=== PATIENT | female | born 1975 | race African-American/Black ===

== ENCOUNTER 2017-07-22 07:02 | Outpatient (CLI) | payer MEDICAID ==
[~2017-07-22] VITALS: Ht 170.2 cm; Wt 68.2 kg
[2017-07-22 07:18] VITALS: BP 119/83
[2017-07-22] MEDS ORDERED: PRENTAB9 PO (07:50)
[2017-07-22] MEDS ORDERED: TUMS500C PO (07:51)
--- NOTE | 2017-07-22 07:55 | IPNPDOC ---
Subjective Date Seen The patient was seen on 07/22/17. Subjective Chief Complaint/HPI The patient is a 42-year-old female admitted with a reason for visit of ?UTI. Events since last encounter Patient is here with urinary urgency and frequency for the past couple days. Denies urinary burning or hematuria. No fevers or chills. Recently moved to [place] from [place], does not have a provider in the area. Moved to the area because could not live in previous place of living. Noted that her day of last menstrual period in January or February. Was planning on having an at 20 week but did not go through with it. Did not receive care and would like to start now. Reports having 4 living children, and 4 either miscarriages or spontaneous abortions. Had delivered previously down in [facility]. Previous living children were born in 1997, 2002, 2006 and 2015 and live in [facility] with previous father. Current is from new partner. Admits to some mild lower abdominal pain, cramping. Has some heartburn symptoms and takes tums for relief. Used to take Norvasc for hypertension but stopped taking it 2 years ago due to lightheadedness. General: Denies: Chills, Night Sweats Constitutional: Denies: Chills Eyes: Denies: Vision change ENT: Denies: Head Aches Pulmonary: Denies: Dyspnea Cardiovascular: Denies: Chest Pain, Palpitations Gastrointestinal: Denies: Nausea, Vomiting, Constipation Other systems PMH: Hypertension GERD 4 living children Meds: None Surgeries: None Allergies: Latex Family: Mom: Thyroid problems Paternal Grandma: Diabetes Social: Moved to [facility] within last 2 weeks. Living with friend while looking for place to live. Father lives in [facility] and not in the picture. Objective Physical Examination General Exam: Positive: Alert, Cooperative, No Acute Distress Eye Exam: Positive: PERRLA ENT Exam: Positive: Atraumatic, Mucous membr. moist/pink Extremity Exam: Negative: Clubbing, Cyanosis, Edema Assessment /Plan Assessment A 42 year old female with dysuria, . Based on day of LMP, beginning of February, estimate gestational age 33-34 weeks. Patient is -2-4-4. All vaginal deliveries, no c-sections. Previous children live in [facility] with previous father. Patient recently moved to [place] from [place], [place] and living with friend. Ordering UA and urine culture for possible UTI. UA positive for +2 Leukocyte esterase, trace blood, trace protein. Patient has not had labs ordering, pending. Ordering gestational ultrasound. Routine care. Plan/VTE VTE Prophylaxis Ordered?: Yes (oob ad chuck) GME ATTESTATION GME ATTESTATION My faculty preceptor for this patient encounter was physically present during the encounter and was fully available. All aspects of the patient interview, examination, medical decision making process, and medical care plan development were reviewed and approved by the faculty preceptor. The faculty preceptor is aware and concurs with the plan as stated in the body of this note and will attest to such by his/her cosignature. JOSE MONTELONGO DO Jul 22, 2017 07:51
[2017-07-22 08:16] VITALS: BP 120/78
[2017-07-22] MEDS ORDERED: NITROFURANTOIN (MACROBID) 100 MG CAP PO SCH (09:00)
[2017-07-22] MEDS ORDERED: PRENATAL VITAMINS CHEWABLE TABLET PO SCH (09:00)
[2017-07-22 09:43] VITALS: BP 121/77
[2017-07-22 10:18] LABS: BASO % 0.2 % (0.0-1.0); EOS # 0.2 10^3/uL (0.0-0.50); EOS % 1.8 % (0.0-3.0); IMMATURE GRANULOCYTE % 0.6 % (0-0); LYMPH # 1.4 10^3/uL (1.5-4.5); LYMPH % 16.5 % (24.0-44.0); MEAN CORPUSCULAR VOLUME 90.8 fl (80.0-96.0); MONO # 0.7 10^3/uL (0.0-0.8); MONO % 8.9 % (0.0-5.0); NEUTROPHILS # 5.9 10^3/uL (1.8-7.7); PLATELET COUNT, AUTOMATED 206 10^3/uL (150-450); RED CELL DISTRIBUTION WIDTH 13.5 % (11.5-14.5); WHITE BLOOD COUNT 8.2 10^3/uL (4.0-10.0)
[2017-07-22 10:21] LABS: ADD MANUAL DIFFER NO; DIFF SLIDE NUMBER 114
--- NOTE | 2017-07-22 10:35 | REP ---
OB ULTRASOUND: Real-time sonographic evaluation of the gravid uterus performed. There is a single living intrauterine gestation, estimated gestational age 27 weeks 5 days, EDC 10/16/2017. BPD 71 mm 28 weeks 4 days HC 255 mm 27 weeks 5 days AC 229 mm 27 weeks 2 days FL 53 mm 28 weeks 1 day HC/AC ratio 1.11 within normal range. Estimated weight 1113 grams, 40th percentile. Cervix is closed and measures 3.2 cm in length. heart rate 153 beats per minute. Amniotic fluid within normal limits, ANURADHA 11.4 within normal range of 9.4 - 22.8. S/d ratio 2.86 within normal range. RI 0.65 within normal range. SEEN/GROSSLY UNREMARKABLE Lateral ventricles Yes Posterior fossa Yes Upper lip Yes Four-chamber heart Yes LVOT Yes RVOT Yes Stomach Yes Cord insertion Yes Three vessel cord Yes Kidneys Yes Bladder Yes Spine Yes position: Vertex. Placenta: Anterior and grade 1 with no previa or abruption. Amniotic fluid: Within normal limits. Signed by Sin Srivastava MD 07/22/2017 10:37 A
[2017-07-22 10:46] LABS: ALT/SGPT 15 U/L (12-78); AST/SGOT 15 U/L (7-37); BILIRUBIN,TOTAL 0.2 MG/DL (0.2-1.0); CREATININE FOR GFR 0.65 MG/DL (0.55-1.02); GLOMERULAR FILTRATION RATE > 60.0 (>58); URIC ACID 3.1 MG/DL (2.6-6.0)
[2017-07-22 10:54] VITALS: BP 136/75
[2017-07-22] MEDS ORDERED: MACR100C43 PO (10:57)
--- NOTE | 2017-07-22 11:02 | IPNPDOC ---
Obstetrical Progress Note Date of Service Jul 22, 2017 Objective Vital Signs Vital Signs Date Time Temp Pulse Resp B/P (MAP) Pulse Ox O2 Delivery O2 Flow Rate FiO2 07/22/17 09:43 98.5 103 18 121/77 (92) Assessment Heart Rate (FHR): 150 Variability: Moderate Accelerations: Positive Decelerations: None Heart Rate Tracing: Category I Tocometer Contractions: No Sterile Vaginal Examination Dilation: other (not performed) Assessment and Plan Age: 42 : 9 Term: 2 Pre-term: 2 Abortions: 4 Livin EGA at Admission: 27 (27w5d) Status: Reassuring Group B Streptococcus: Unknown Additional Comments panel, preeclamptic panel, US for dating/anatomy ordered. ASHLEIGH by piedad briggs 10/16/17. Urine C&S pending. Macrobid 100mg BID ordered Encouraged pt to seek PN care SWATHI. Warnings reviewed. Pt verbalized understanding. Codie Decker CNM Jul 22, 2017 11:02
[2017-07-23 10:34] LABS: HBsAg Prenatal NEGATIVE (NEGATIVE)
== END 2017-07-22 11:06 | disposition home or self-care (01) ==
LOC: M LDO 07:02
PROVIDERS: ATTEND Advanced Practice Midwife
DX: O99.89 Other specified diseases and conditions complicating pregnancy, childbirth and the puerperium (principal); Z3A.27 27 weeks gestation of pregnancy; O23.42 Unspecified infection of urinary tract in pregnancy, second trimester; O10.012 Pre-existing essential hypertension complicating pregnancy, second trimester; K21.9 Gastro-esophageal reflux disease without esophagitis; O09.32 Supervision of pregnancy with insufficient antenatal care, second trimester; O09.522 Supervision of elderly multigravida, second trimester; Z91.040 Latex allergy status; O99.612 Diseases of the digestive system complicating pregnancy, second trimester

== ENCOUNTER → 2017-08-03 | Outpatient (REF) | payer MEDICAID ==
[~2017-08-03] MED LIST: MACR100C43 PO; PRENTAB9 PO; TUMS500C PO
== END ==
LOC: M LAB REF 16:41
PROVIDERS: ATTEND Obstetrics & Gynecology
DX: Z34.83 Encounter for supervision of other normal pregnancy, third trimester (principal)

== ENCOUNTER → 2017-08-20 | Outpatient (CLI) | payer MEDICAID ==
[2017-08-20 09:32] LABS: GLUCOSE, FASTING 88 MG/DL (LESS THAN 95)
[2017-08-20 10:38] LABS: 1 HR GLUCOSE 145 MG/DL (LESS THAN 180)
[2017-08-20 11:48] LABS: 2 HR GLUCOSE 135 MG/DL (LESS THAN 155)
[2017-08-20 12:53] LABS: 3 HR GLUCOSE 105 MG/DL (LESS THAN 140)
== END ==
LOC: M LAB 08:30
DX: O99.810 Abnormal glucose complicating pregnancy (principal); Z3A.31 31 weeks gestation of pregnancy
CPT/HCPCS: 82951

== ENCOUNTER 2017-09-09 11:44 | Emergency (ER) | payer MEDICAID ==
[2017-09-09] MEDS: NS 1,000 ML IV (13:15)
[2017-09-09 13:26] LABS: BASO % 0.3 % (0.0-1.0); EOS # 0.2 10^3/uL (0.0-0.50); EOS % 2.6 % (0.0-3.0); HEMATOCRIT 37.5 % (36.0-47.0); HEMOGLOBIN 12.5 g/dl (12.0-16.0); IMMATURE GRANULOCYTE % 0.3 % (0-0); LYMPH # 1.6 10^3/uL (1.5-4.5); MEAN CORPUSCULAR HEMOGLOBIN 29.3 pg (27.0-33.0); MEAN CORPUSCULAR HGB CONC 33.3 g/dl (32.0-36.5); MONO # 0.5 10^3/uL (0.0-0.8); MONO % 7.4 % (0.0-5.0); NEUTROPHILS # 4.3 10^3/uL (1.8-7.7); NEUTROPHILS % 65.4 % (36.0-66.0); PLATELET COUNT, AUTOMATED 240 10^3/uL (150-450); RED BLOOD COUNT 4.26 10^6/uL (4.00-5.40); RED CELL DISTRIBUTION WIDTH 13.5 % (11.5-14.5); WHITE BLOOD COUNT 6.5 10^3/uL (4.0-10.0)
[2017-09-09 13:41] LABS: ANION GAP 8 MEQ/L (8-16); BLOOD UREA NITROGEN 8 MG/DL (7-18); CALCIUM LEVEL 8.7 MG/DL (8.5-10.1); CARBON DIOXIDE LEVEL 23 MEQ/L (21-32); CHLORIDE LEVEL 107 MEQ/L (98-107); CPK CREATINE PHOSPHOKINASE 70 U/L (26-192); CREATININE FOR GFR 0.91 MG/DL (0.55-1.30); GLOMERULAR FILTRATION RATE > 60.0 (>58); GLUCOSE, FASTING 120 MG/DL (70-100); MAGNESIUM LEVEL 1.6 MG/DL (1.8-2.4); POTASSIUM SERUM 3.4 MEQ/L (3.5-5.1); SODIUM LEVEL 138 MEQ/L (136-145); TROPONIN I < 0.02 NG/ML (< 0.10)
[2017-09-09 13:47] LABS: INR 0.93; MB/CK RELATIVE INDEX 1.42 (< OR =4); PROTHROMBIN TIME 12.5 SECONDS (12.4-14.5)
== END 2017-09-09 14:57 | disposition home or self-care (01) ==
LOC: M ED 11:44
DX: O99.89 Other specified diseases and conditions complicating pregnancy, childbirth and the puerperium (principal); R42 Dizziness and giddiness; Z3A.35 35 weeks gestation of pregnancy
CPT/HCPCS: 93005

== ENCOUNTER → 2017-09-22 | Outpatient (REF) | payer MEDICAID | LOC: M LAB REF 16:31 | DX: Z3A.36 36 weeks gestation of pregnancy (principal) ==

== ENCOUNTER 2017-09-28 17:05 | Inpatient (IN) | payer MEDICAID ==
[2017-09-28] MEDS: LABETALOL HCL 100 MG/20 ML VIAL IV ×2 (18:55→19:58)
[2017-09-28 19:44] LABS: HEMATOCRIT 35.8 % (36.0-47.0); HEMOGLOBIN 12.1 g/dl (12.0-16.0); MEAN CORPUSCULAR HGB CONC 33.8 g/dl (32.0-36.5); MEAN CORPUSCULAR VOLUME 88.8 fl (80.0-96.0); PLATELET COUNT, AUTOMATED 181 10^3/uL (150-450); RED BLOOD COUNT 4.03 10^6/uL (4.00-5.40); RED CELL DISTRIBUTION WIDTH 13.5 % (11.5-14.5); WHITE BLOOD COUNT 8.3 10^3/uL (4.0-10.0)
[2017-09-28] MEDS ORDERED: OXYTOCIN 30 UNITS IN 0.9% NaCl 500ML IV BAG (J2590) As Ordered (19:52)
[2017-09-28 20:06] LABS: ALT/SGPT 14 U/L (12-78); AST/SGOT 19 U/L (7-37); BILIRUBIN,TOTAL 0.2 MG/DL (0.2-1.0); CREATININE FOR GFR 0.75 MG/DL (0.55-1.30); GLOMERULAR FILTRATION RATE > 60.0 (>58); LDH LACTATE DEHYDROGENASE 189 U/L (84-246); URIC ACID 4.3 MG/DL (2.6-6.0)
[2017-09-28] MEDS ORDERED: FENTANYL 2MCG/ML ROPIVACAINE 0.2% IN 0.9% NACL 200ML IVBAG As Ordered (20:13)
[2017-09-28 20:30] LABS: AMPHETAMINES URINE REFLEX NEGATIVE (NEGATIVE); BARBITURATES URINE REFLEX NEGATIVE (NEGATIVE); BENZODIAZEPINES URINE REFLEX NEGATIVE (NEGATIVE); CANNABINOIDS URINE REFLEX NEGATIVE (NEGATIVE); COCAINE METABOLITE URINE REFLE NEGATIVE (NEGATIVE); CREATININE,RANDOM URINE 60.1 MG/DL; METHADONE URINE REFLEX NEGATIVE (NEGATIVE); OPIATES URINE REFLEX NEGATIVE (NEGATIVE); PHENCYCLIDINE URINE REFLEX NEGATIVE (NEGATIVE); TOTAL PROTEIN,RANDOM URINE 13.3 MG/DL (0.0-12.0)
[2017-09-28] MEDS: OXYTOCIN DRIP 30 UNITS in APPROPRIATE DILUENT 1 EA IV (23:32)
[2017-09-28] MEDS ORDERED: MEASLES,MUMPS,RUBELLA VACCINE INJ (MMR-II) (90707) SC (23:45)
[2017-09-28] MEDS ORDERED: DOCUSATE SODIUM 100 MG CAP PO (23:45)
[2017-09-28] MEDS ORDERED: DIBUCAINE 1% OINTMENT 30GM TOP (23:45)
[2017-09-28] MEDS ORDERED: RHOGAM 300 MCG (1500 IU) INJ (J2790) IM (23:45)
[2017-09-28] MEDS ORDERED: METHYLERGONOVINE MALEATE 0.2 MG TAB PO (23:45)
[2017-09-28] MEDS ORDERED: ACETAMINOPHEN 500 MG TAB PO (23:45)
[2017-09-28] MEDS: LABETALOL 200 MG TAB PO (23:58)
[2017-09-28] MEDS: IBUPROFEN 800 MG TAB PO (23:58)
[2017-09-29 06:47] LABS: HEMATOCRIT 31.7 % (36.0-47.0); HEMOGLOBIN 10.8 g/dl (12.0-16.0); MEAN CORPUSCULAR HEMOGLOBIN 29.8 pg (27.0-33.0); MEAN CORPUSCULAR HGB CONC 34.1 g/dl (32.0-36.5); MEAN CORPUSCULAR VOLUME 87.3 fl (80.0-96.0); PLATELET COUNT, AUTOMATED 154 10^3/uL (150-450); RED BLOOD COUNT 3.63 10^6/uL (4.00-5.40); RED CELL DISTRIBUTION WIDTH 13.4 % (11.5-14.5); WHITE BLOOD COUNT 11.3 10^3/uL (4.0-10.0)
[2017-09-29 07:06] LABS: ALT/SGPT 12 U/L (12-78); AST/SGOT 24 U/L (7-37); BILIRUBIN,TOTAL 0.2 MG/DL (0.2-1.0); GLOMERULAR FILTRATION RATE > 60.0 (>58); LDH LACTATE DEHYDROGENASE 204 U/L (84-246); URIC ACID 4.3 MG/DL (2.6-6.0)
[2017-09-29] MEDS: LABETALOL 200 MG TAB PO ×3 (08:59→21:44)
[2017-09-29] MEDS: PRENATAL VITAMINS CHEWABLE TABLET PO ×2 (08:59→09:29)
[2017-09-29] MEDS: IBUPROFEN 800 MG TAB PO ×2 (09:29→20:01)
[2017-09-30] MEDS: IBUPROFEN 800 MG TAB PO (08:48)
[2017-09-30] MEDS: PRENATAL VITAMINS CHEWABLE TABLET PO (08:48)
[2017-09-30] MEDS: LABETALOL 200 MG TAB PO (08:49)
== END 2017-09-30 18:10 | disposition home or self-care (01) | DRG 560 ==
LOC: M LDO 17:05 → M OBS 09-29 02:31 → M LDI 18:11 → M OBS 09-29 14:32
PROC: 10E0XZZ Delivery of Products of Conception, External Approach (ICD-10-PCS; principal; 2017-09-28)
DX: O10.02 Pre-existing essential hypertension complicating childbirth (principal); Z37.0 Single live birth; Z3A.37 37 weeks gestation of pregnancy

== ENCOUNTER 2017-11-11 14:24 | Observation (INO) | payer OTHER, MEDICAID ==
[2017-11-11] MEDS ORDERED: LABETALOL HCL 100 MG/20 ML VIAL IV (16:00)
[2017-11-11] MEDS: LABETALOL 200 MG TAB PO (16:36)
[2017-11-11 16:43] LABS: BASO % 0.4 % (0.0-1.0); EOS # 0.2 10^3/uL (0.0-0.50); EOS % 2.5 % (0.0-3.0); HEMATOCRIT 40.9 % (36.0-47.0); HEMOGLOBIN 13.6 g/dl (12.0-15.5); IMMATURE GRANULOCYTE % 0.1 % (0-3.0); LYMPH # 2.8 10^3/uL (1.5-4.5); LYMPH % 39.5 % (24.0-44.0); MEAN CORPUSCULAR HEMOGLOBIN 29.4 pg (27.0-33.0); MEAN CORPUSCULAR HGB CONC 33.3 g/dl (32.0-36.5); MEAN CORPUSCULAR VOLUME 88.5 fl (80.0-96.0); MONO # 0.5 10^3/uL (0.0-0.8); MONO % 6.9 % (0.0-5.0); NEUTROPHILS # 3.6 10^3/uL (1.8-7.7); NEUTROPHILS % 50.6 % (36.0-66.0); PLATELET COUNT, AUTOMATED 216 10^3/uL (150-450); RED BLOOD COUNT 4.62 10^6/uL (4.00-5.40); WHITE BLOOD COUNT 7.1 10^3/uL (4.0-10.0)
[2017-11-11 16:53] LABS: INR 0.91; PROTHROMBIN TIME 12.3 SECONDS (12.4-14.5)
[2017-11-11 16:54] LABS: PARTIAL THROMBOPLASTIN TIME 27.1 SECONDS (26.8-37.9)
[2017-11-11 17:15] LABS: ALBUMIN 3.4 GM/DL (3.2-5.2); ALBUMIN/GLOBULIN RATIO 0.81 (1.00-1.93); ALT/SGPT 48 U/L (12-78); ANION GAP 5 MEQ/L (8-16); AST/SGOT 30 U/L (7-37); BILIRUBIN,DIRECT < 0.1 MG/DL (0.0-0.2); BILIRUBIN,TOTAL 0.2 MG/DL (0.2-1.0); BLOOD UREA NITROGEN 14 MG/DL (7-18); CALCIUM LEVEL 8.4 MG/DL (8.5-10.1); CARBON DIOXIDE LEVEL 28 MEQ/L (21-32); CHLORIDE LEVEL 107 MEQ/L (98-107); CREATININE FOR GFR 0.91 MG/DL (0.55-1.30); GLOMERULAR FILTRATION RATE > 60.0 (>58); GLUCOSE, FASTING 82 MG/DL (70-100); LIPASE 154 U/L (73-393); MAGNESIUM LEVEL 2.1 MG/DL (1.8-2.4); POTASSIUM SERUM 3.7 MEQ/L (3.5-5.1); SODIUM LEVEL 140 MEQ/L (136-145); TOTAL PROTEIN 7.6 GM/DL (6.4-8.2); TROPONIN I < 0.02 NG/ML (< 0.10); URIC ACID 4.7 MG/DL (2.6-6.0)
[2017-11-11 17:21] LABS: ALKALINE PHOSPHATASE 85 U/L (45-117); CK-MB VALUE MASS < 1.0 NG/ML (<3.6); CPK CREATINE PHOSPHOKINASE 94 U/L (26-192); MB/CK RELATIVE INDEX 1.06 (< OR =4)
[2017-11-11 17:27] LABS: CONTROL LINE HCG INT CTR LINE PRESENT; HCG, SERUM QUALITATIVE NEGATIVE (NEGATIVE)
[2017-11-11 18:25] LABS: KETONE, URINE AUTO RFX NEGATIVE (NEGATIVE); LEUKOCYTE ESTERASE UR AUTO RFX NEGATIVE (NEGATIVE); MUCUS, URINE RFX SMALL (NEGATIVE); NITRITE, URINE AUTO RFX NEGATIVE (NEGATIVE); RBC, URINE AUTO RFX 0 /HPF (0-3); SPECIFIC GRAVITY UR AUTO RFX 1.012 (1.002-1.035); SQUAM EPITHELIAL CELL UR AURFX 1 /HPF (0-6); WBC, URINE AUTO RFX 1 /HPF (0-3)
[2017-11-11] MEDS: hydrALAZINE INJ 20 MG/ML VIAL IV (19:51)
[2017-11-11] MEDS ORDERED: ONDANSETRON 4 MG TAB (S0181) PO (20:45)
[2017-11-11] MEDS: hydroCHLOROthiazide 12.5 MG CAPSULE PO (21:13)
[2017-11-11] MEDS: amLODIPine 10 MG TAB PO (21:13)
[2017-11-12] MEDS: ACETAMINOPHEN TAB 650MG DOSE (2X325MG) PO (06:27)
[2017-11-12] MEDS ORDERED: amLODIPine 10 MG TAB PO (09:00)
[2017-11-12] MEDS: amLODIPine 10 MG TAB PO (10:01)
[2017-11-12] MEDS: ENOXAPARIN 40 MG/0.4 ML SYRINGE (J1650) SC (10:01)
[2017-11-12] MEDS: hydroCHLOROthiazide 12.5 MG CAPSULE PO (10:01)
== END 2017-11-12 13:00 | disposition home or self-care (01) ==
LOC: M ED 14:24 → M PED 23:35
DX: I16.0 Hypertensive urgency (principal); J45.909 Unspecified asthma, uncomplicated; I10 Essential (primary) hypertension; Z91.040 Latex allergy status; Z79.899 Other long term (current) drug therapy
CPT/HCPCS: J1650

== ENCOUNTER → 2018-01-31 | Outpatient (CLI) | payer MEDICAID | LOC: M OUTALCOH 07:57 | DX: F14.20 Cocaine dependence, uncomplicated (principal) ==

== ENCOUNTER 2018-02-17 10:26 | Outpatient (RCR) | payer MEDICAID | END 2018-03-08 | LOC: M OUTALCOH 02-23 14:23 | DX: F14.20 Cocaine dependence, uncomplicated (principal) ==

== ENCOUNTER → 2018-02-25 | Outpatient (CLI) | payer OTHER | LOC: M LAB 17:41 | DX: F14.20 Cocaine dependence, uncomplicated (principal) | CPT/HCPCS: 36415 ==

== ENCOUNTER → 2018-05-06 | Outpatient (CLI) | payer MEDICAID | LOC: M OUTALCOH 12:59 | DX: F14.20 Cocaine dependence, uncomplicated (principal) ==

== ENCOUNTER 2018-05-17 15:00 | Outpatient (RCR) | payer MEDICAID | END 2018-06-08 | LOC: M OUTALCOH 05-19 14:00 | DX: F14.20 Cocaine dependence, uncomplicated (principal) ==

== ENCOUNTER 2018-08-10 09:44 | Emergency (ER) | payer MEDICAID, OTHER ==
[~2018-08-10] VITALS: Ht 170.2 cm; Wt 70.5 kg
[~2018-08-10 09:44] MED LIST changes: +AMLO10TA5 PO; +CYCL10TA PO; +HYDR12CA PO; +LABE5INJ PO; +MOTR200T44 PO; +NORCOTAB PO; +TYLE500T78 PO; +VITMTA PO
[2018-08-10 09:57] VITALS: BP 166/106
--- NOTE | 2018-08-10 10:41 | REP ---
Unilateral right ribs PA chest five views History: Fall The lungs are clear. The heart is normal in size. The pulmonary vasculature is normal in appearance. There is a fracture of the the right ninth rib. Impression: Right ninth rib fracture. Electronically Signed by Fabio Xiao MD 08/10/2018 10:33 A
[2018-08-10] MEDS ORDERED: NORCO, ANEXSIA 5/325MG TABLET (HYDROcodone/ACETAMINOPHEN) PO ONE (10:45)
[2018-08-10] MEDS ORDERED: NORCOTAB PO ×2 (10:47→10:48)
== END 2018-08-10 11:10 | disposition home or self-care (01) ==
LOC: M ED 09:44
DX: S22.31XA Fracture of one rib, right side, initial encounter for closed fracture (principal); W11.XXXA Fall on and from ladder, initial encounter; Y92.098 Other place in other non-institutional residence as the place of occurrence of the external cause; I10 Essential (primary) hypertension; J45.909 Unspecified asthma, uncomplicated; R51 Headache; K21.9 Gastro-esophageal reflux disease without esophagitis; F41.9 Anxiety disorder, unspecified; F32.9 Major depressive disorder, single episode, unspecified; Z91.040 Latex allergy status; Z79.899 Other long term (current) drug therapy

== ENCOUNTER → 2018-08-30 | Outpatient (REF) | payer OTHER ==
[2018-08-30 16:57] LABS: BASO % 0.7 % (0.0-1.0); EOS # 0.1 10^3/uL (0.0-0.50); EOS % 2.2 % (0.0-3.0); HEMATOCRIT 43.5 % (36.0-47.0); LYMPH # 1.4 10^3/uL (1.5-4.5); LYMPH % 31.8 % (24.0-44.0); MEAN CORPUSCULAR HEMOGLOBIN 29.4 pg (27.0-33.0); MEAN CORPUSCULAR HGB CONC 32.2 g/dl (32.0-36.5); MEAN CORPUSCULAR VOLUME 91.2 fl (80.0-96.0); MONO # 0.4 10^3/uL (0.0-0.8); MONO % 8.7 % (0.0-5.0); NEUTROPHILS # 2.6 10^3/uL (1.8-7.7); NEUTROPHILS % 56.6 % (36.0-66.0); PLATELET COUNT, AUTOMATED 218 10^3/uL (150-450); RED BLOOD COUNT 4.77 10^6/uL (4.00-5.40); WHITE BLOOD COUNT 4.5 10^3/uL (4.0-10.0)
[2018-08-30 17:13] LABS: ALBUMIN 3.7 GM/DL (3.2-5.2); ALT/SGPT 24 U/L (12-78); BILIRUBIN,TOTAL 0.2 MG/DL (0.2-1.0); BLOOD UREA NITROGEN 13 MG/DL (7-18); CALCIUM LEVEL 9.2 MG/DL (8.5-10.1); CARBON DIOXIDE LEVEL 30 MEQ/L (21-32); CHLORIDE LEVEL 104 MEQ/L (98-107); CHOLESTEROL LEVEL 215 MG/DL (<200); CHOLESTEROL RISK RATIO 4.215 (<5); CREATININE FOR GFR 0.93 MG/DL (0.55-1.30); GLOMERULAR FILTRATION RATE > 60.0 (>58); GLUCOSE, FASTING 89 MG/DL (70-100); HDL CHOLESTEROL 51 MG/DL (>40); LDL CHOLESTEROL 140 MG/DL (<100); NON-HDL-C 164 MG/DL; POTASSIUM SERUM 4.2 MEQ/L (3.5-5.1); SODIUM LEVEL 140 MEQ/L (136-145); THYROID STIMULATING HORMONE 0.305 uIU/ML (0.358-3.740); TOTAL PROTEIN 7.4 GM/DL (6.4-8.2); TRIGLYCERIDES LEVEL 122 MG/DL (<150)
[2018-08-30 17:30] LABS: HEMOGLOBIN A1c 6.1 %
== END ==
LOC: M LAB REF 16:23
PROVIDERS: ATTEND Nurse Practitioner Family
DX: Z13.9 Encounter for screening, unspecified (principal); I10 Essential (primary) hypertension

== ENCOUNTER → 2018-09-12 | Outpatient (CLI) | payer OTHER ==
--- NOTE | 2018-09-13 02:32 | REP ---
Clinical: Annual health screening requirement . Comparison: None . Technique: PA and lateral. Findings: The mediastinum and cardiac silhouette are normal. The lung toribio are clear and without acute consolidation, effusion, or pneumothorax. The skeletal structures are intact and normal. Impression: 1. No acute cardiopulmonary process. Electronically Signed by Grabiel Burgess MD 09/13/2018 02:23 A
== END ==
LOC: M RAD 14:48
PROVIDERS: ATTEND Nurse Practitioner Adult Health
DX: Z13.9 Encounter for screening, unspecified (principal)

== ENCOUNTER 2018-11-13 18:42 | Emergency (ER) | payer OTHER, SELFPAY ==
[~2018-11-13] VITALS: Ht 170.2 cm; Wt 65.9 kg
[~2018-11-13 18:42] MED LIST changes: +HYDR-3715 PO; -NORCOTAB PO
[2018-11-13] MEDS ORDERED: TRAZ10TA PO (18:51)
[2018-11-13] MEDS ORDERED: PERCOCET 5MG/325MG TAB PO ONE (20:00)
--- NOTE | 2018-11-13 20:20 | REPVR ---
EXAM: CT Head Without Contrast EXAM DATE/TIME: 11/13/2018 7:33 PM CLINICAL HISTORY: 43 years old, female; Injury or trauma; Fall; Additional info: Head injury with brief loc TECHNIQUE: Imaging protocol: Axial computed tomography images of the head/brain without contrast. Radiation optimization: All CT scans at this facility use at least one of these dose optimization techniques: automated exposure control; mA and/or kV adjustment per patient size (includes targeted exams where dose is matched to clinical indication); or iterative reconstruction. COMPARISON: No relevant prior studies available. FINDINGS: Brain: Normal. No hemorrhage. No significant white matter disease. No edema. Ventricles: Normal. No ventriculomegaly. Bones/joints: Unremarkable. No acute fracture. Sinuses: Visualized sinuses are unremarkable. No acute sinusitis. Mastoid air cells: Visualized mastoid air cells are unremarkable. No mastoid effusion. Soft tissues: Unremarkable. IMPRESSION: Negative noncontrast head CT. Electronically signed by: Fermin Boudreaux On 11/13/2018 20:20:23 PM
[2018-11-13] MEDS ORDERED: HYDR-3715 PO (20:48)
[2018-11-13 21:00] VITALS: BP 112/59
[2018-11-13] MEDS ORDERED: NORCO 5/325MG TABLET (BULK FOR ED) PO ONE (21:00)
--- NOTE | 2018-11-14 02:17 | REP ---
Clinical: Right knee pain. Technique: AP and lateral views of the right knee. Findings: Osseous structures, joint spaces, and surrounding soft tissues are relatively normal for age. No acute fracture dislocation. No effusion. No obvious swelling. Impression: Age-appropriate examination. Electronically Signed by Grabiel Burgess MD 11/14/2018 02:09 A
--- NOTE | 2018-11-14 02:18 | REP ---
Clinical: Right ankle pain with recent trauma/injury. Technique: AP, lateral, bilateral oblique views of the right ankle. Findings: There is an oblique fracture of the distal fibular metadiaphysis with overlying soft tissue swelling. Remainder examination appears normal. Impression: Oblique fracture of the distal fibular metadiaphysis. Electronically Signed by Grabiel Burgess MD 11/14/2018 02:10 A
--- NOTE | 2018-11-14 05:35 | ECGEPIP ---
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
== END 2018-11-13 21:14 | disposition home or self-care (01) ==
LOC: M ED 18:42
DX: S82.831A Other fracture of upper and lower end of right fibula, initial encounter for closed fracture (principal); W10.8XXA Fall (on) (from) other stairs and steps, initial encounter; Y92.89 Other specified places as the place of occurrence of the external cause; R55 Syncope and collapse; I10 Essential (primary) hypertension; K21.9 Gastro-esophageal reflux disease without esophagitis; Z91.040 Latex allergy status

== ENCOUNTER 2018-11-23 11:55 | Day surgery (SDC) | payer OTHER ==
[~2018-11-23] VITALS: Ht 170.2 cm; Wt 65.8 kg
[~2018-11-23 11:55] MED LIST changes: +LIDOCAINE 1% MDV 20ML VIAL SQ PRN; +LR 1,000 ML IV ONE; +TRAZ10TA PO
[2018-11-23] MEDS ORDERED: ROPIvacaine 0.5% 30 ML INJECTION (J2795 PER 1MG) ONE ×2 (11:56)
[2018-11-23] MEDS ORDERED: dexameTHASONE 10 MG/1 ML VIAL PRES.FREE (J1100) ONE ×2 (11:56)
[2018-11-23] MEDS ORDERED: LIDOCAINE 1% MDV 20ML VIAL ONE ×2 (11:56)
[2018-11-23] MEDS ORDERED: ONDANSETRON 4MG/2ML VIAL (J2405) As Ordered ONE (12:25)
[2018-11-23] MEDS ORDERED: ROCURONIUM BROMIDE 50 MG/5 ML VIAL As Ordered ONE (12:26)
[2018-11-23] MEDS ORDERED: dexameTHASONE 4 MG/ML 1ML VIAL (J1100) As Ordered ONE (12:26)
[2018-11-23] MEDS ORDERED: PROPOFOL 200 MG/20 ML VIAL As Ordered ONE (12:26)
[2018-11-23] MEDS ORDERED: LIDOCAINE 2% INJ 100 MG/5 ML SDV (FOR ANES.) As Ordered ONE (12:26)
[2018-11-23] MEDS ORDERED: MIDAZOLAM INJ 2 MG/2 ML VIAL (J2250) As Ordered ONE ×2 (12:26→13:17)
[2018-11-23] MEDS ORDERED: fentaNYL 100 MCG/2 ML INJECTION (J3010) As Ordered ONE ×2 (12:27→13:17)
[2018-11-23 12:41] LABS: URINE PREG TEST NEGATIVE (NEGATIVE)
[2018-11-23 13:46] LABS: BLOOD UREA NITROGEN 15 MG/DL (7-18); CALCIUM LEVEL 8.7 MG/DL (8.5-10.1); CARBON DIOXIDE LEVEL 28 MEQ/L (21-32); CHLORIDE LEVEL 106 MEQ/L (98-107); CREATININE FOR GFR 0.99 MG/DL (0.55-1.30); GLOMERULAR FILTRATION RATE > 60.0 (>58); GLUCOSE, FASTING 92 MG/DL (70-100); POTASSIUM SERUM 4.5 MEQ/L (3.5-5.1); SODIUM LEVEL 140 MEQ/L (136-145)
[2018-11-23] MEDS ORDERED: MIDAZOLAM INJ 2 MG/2 ML VIAL (J2250) IV ONE (14:00)
[2018-11-23] MEDS ORDERED: fentaNYL 100 MCG/2 ML INJECTION (J3010) IV ONE (14:00)
[2018-11-23] MEDS ORDERED: SUGAMMADEX SODIUM 500 MG/5 ML VIAL (BRIDION) As Ordered ONE (14:37)
[2018-11-23] MEDS ORDERED: METOPROLOL 5 MG/5 ML VIAL As Ordered ONE (14:37)
[2018-11-23] MEDS ORDERED: ESMOLOL INJ 100MG/10ML VIAL As Ordered ONE (14:37)
--- NOTE | 2018-11-23 15:31 | REP ---
Right ankle intraoperative fluoroscopic views during internal fixation: A series of eight films is performed during internal fixation of the distal fibula. The final films demonstrate the hardware and fracture are maintained in satisfactory position alignment. The mortise is symmetric. Fluoroscopic exposure time is 53 seconds. Fluoroscopic images are performed with last image hold technology and require no additional radiation. Electronically Signed by Sin Randolph MD 11/23/2018 03:22 P
[2018-11-23] MEDS ORDERED: fentaNYL 100 MCG/2 ML INJECTION (J3010) IV PRN (16:00)
[2018-11-23] MEDS ORDERED: ONDANSETRON 4MG/2ML VIAL (J2405) IV PRN (16:00)
[2018-11-23] MEDS ORDERED: PERCOCET 5MG/325MG TAB PO PRN (16:00)
[2018-11-23] MEDS ORDERED: LR 1,000 ML IV SCH ×2 (16:00→16:15)
[2018-11-23] MEDS ORDERED: HYDROMORPHONE HCL 0.5 MG/ 0.5 ML SYRINGE (J1170 PER 1) IV PRN (16:00)
[2018-11-23] MEDS ORDERED: NORCO, ANEXSIA 5/325MG TABLET (HYDROcodone/ACETAMINOPHEN) PO PRN ×2 (16:15)
--- NOTE | 2018-11-23 16:39 | REP ---
RIGHT ANKLE, THREE VIEWS: HISTORY: Fracture. COMPARISON: 11/23/2018 A plaster cast is present obscuring detail. The patient is status post ORIF of a fracture of the distal fibula. Metal hardware is present. The joint space is normal in appearance. IMPRESSION: The patient is status post ORIF of a fracture of the distal fibula. There is anatomic alignment. Electronically Signed by Fabio Xiao MD 11/23/2018 04:40 P
[2018-11-23 17:00] VITALS: BP 129/88
--- NOTE | 2018-11-23 19:03 | RO ---
DATE OF PROCEDURE: 11/23/2018 PREPROCEDURE DIAGNOSIS: Right ligamentous SER IV ankle fracture. POSTPROCEDURE DIAGNOSIS: Right ligamentous SER IV ankle fracture. OPERATIVE PROCEDURE: Open reduction internal fixation right fibula. SURGEON: Kendra Mckeon MD MASONRY INSPECTOR: None. ANESTHESIA: General endotracheal and popliteal nerve block. ESTIMATED BLOOD LOSS: 10 mL TOURNIQUET TIME: 66 minutes. COMPLICATIONS: None. CONDITION: Stable to recovery. IMPLANTS: Synthes 1/3 tubular six-hole plate and associated screws. INDICATION: Zoya Mckinney is a 43-year-old female who sustained a mechanical fall 10 days ago. Stress views performed in the office revealed a medial clear space widening. Patient elected for surgical management for her fracture. Risks and benefits of the surgery were discussed and included, but are not limited to infection, damage to nerves and blood vessels, continued pain and stiffness, need for additional procedure, malunion or nonunion, continued pain and stiffness. Informed consent was obtained in the office. DESCRIPTION OF PROCEDURE: The patient was met in the preoperative holding area where the right lower extremity was marked as the correct operative site. She underwent a popliteal nerve block by the anesthesia team. She was then taken to the operating room where she was placed in the supine position on the operating room table. Bony prominences were all padded. She underwent general anesthesia without difficulty. A well-padded tourniquet was placed on the right upper thigh. Chlorhexidine scrub was performed of the right lower extremity. Right lower extremity was prepped and draped in the normal sterile fashion. An official time out was held with the correct patient, operative site and operative procedure were verified. Following this, the right lower extremity was exsanguinated and tourniquet was inflated to 250 mmHg. It was up for 66 minutes. An incision was made over the posterolateral aspect of the fibula. Careful dissection to the level of the fracture was performed. The fracture was identified and cleaned of hematoma and debris. It was reduced using a point of reduction clamp. Reduction was confirmed on AP, lateral and mortise C-Arm views. Following this, a 0.0622 K-wire was placed across the fracture site. A lag screw was then placed and had good compression. A six hole 1/3 tubular plate was selected. It was placed over the posterolateral aspect of the fibula and secured proximally with 3.5 mm screws and distally with 4.0 cancellous screws. Hardware placement and reduction were again confirmed on AP, lateral and mortise views with the C-Arm. An external rotation stress test was performed. This was found to be negative and thus no syndesmotic screw was placed. Following this, wound was copiously irrigated. Deep layer was closed using #2-0 Vicryl, superficial layer was closed using #3-0 Vicryl and skin was closed with running #3-0 nylon stitch. A sterile dressing was applied followed by well padded cast. The patient was extubated and transferred to the recovery room in stable condition. PLAN: The patient will be nonweightbearing in the right lower extremity for 6 weeks. She will be on aspirin for DVT prophylaxis which she should start tomorrow. We will see her back in 2 weeks for a wound check and suture removal.
== END 2018-11-23 17:50 | disposition home or self-care (01) ==
LOC: M SDC 11:55
PROVIDERS: ATTEND Orthopaedic Surgery
DX: S82.61XA Displaced fracture of lateral malleolus of right fibula, initial encounter for closed fracture (principal); W19.XXXA Unspecified fall, initial encounter; Y93.9 Activity, unspecified; Y92.9 Unspecified place or not applicable; Y99.9 Unspecified external cause status; I10 Essential (primary) hypertension; F41.9 Anxiety disorder, unspecified; F32.9 Major depressive disorder, single episode, unspecified; Z91.040 Latex allergy status; Z79.899 Other long term (current) drug therapy
CPT/HCPCS: 27792; 36415; 73610; 80048; 84703; C1713; J0690; J1100; J2250; J2405; J2795; J3010

== ENCOUNTER 2018-12-22 11:15 | Emergency (ER) | payer OTHER ==
[~2018-12-22] VITALS: Ht 170.2 cm; Wt 69.8 kg
[~2018-12-22 11:15] MED LIST changes: -LIDOCAINE 1% MDV 20ML VIAL SQ PRN; -LR 1,000 ML IV ONE
[2018-12-22] MEDS ORDERED: ARIP1TAB4 (11:33)
[2018-12-22] MEDS ORDERED: TRAM50TA2 (11:33)
[2018-12-22] MEDS ORDERED: CITA20TA7 (11:33)
[2018-12-22] MEDS ORDERED: TRAZ-163 (11:33)
[2018-12-22 11:51] LABS: URINE PREG TEST NEGATIVE (NEGATIVE)
[2018-12-22 11:59] LABS: APPEARANCE, URINE HAZY (CLEAR); BACTERIA, URINE AUTO NEGATIVE (NEGATIVE); BILIRUBIN, URINE AUTO NEGATIVE (NEGATIVE); BLOOD, URINE BLOOD NEGATIVE (NEGATIVE); COLOR, URINE YELLOW (YELLOW); GLUCOSE, URINE (UA) AUTO NEGATIVE (NEGATIVE); KETONE, URINE AUTO NEGATIVE (NEGATIVE); LEUKOCYTE ESTERASE, URINE AUTO NEGATIVE (NEGATIVE); MUCUS, URINE SMALL (NEGATIVE); NITRITE, URINE AUTO NEGATIVE (NEGATIVE); PROTEIN, URINE AUTO NEGATIVE (NEGATIVE); RBC, URINE AUTO 1 /HPF (0-3); SPECIFIC GRAVITY URINE AUTO 1.028 (1.002-1.035); SQUAMOUS EPITHELIAL CELL UR AU 2 /HPF (0-6); UROBILINOGEN, URINE AUTO 0.2 mg/dL (0.0-2.0); WBC, URINE AUTO 1 /HPF (0-3)
[2018-12-22 12:42] VITALS: BP 136/79
[2018-12-22] MEDS ORDERED: LIDOCAINE 1% SDV 5 ML VIAL DILUENT ONE (12:45)
[2018-12-22] MEDS ORDERED: AZITHROMYCIN 250 MG TAB PO ONE (12:45)
[2018-12-22] MEDS ORDERED: cefTRIAXone SOD 250 MG VIAL (J0696) IM ONE (12:45)
[2018-12-22] MEDS ORDERED: FLAG500T PO (12:55)
[2018-12-22] MEDS ORDERED: FLUC10TA PO (12:55)
[2018-12-22 13:40] LABS: CHLAMYDIA DNA AMPLIFICATION NEGATIVE (NEGATIVE); GC DNA AMPLIFICATION NEGATIVE (NEGATIVE)
[2018-12-22 13:51] LABS: CHLAMYDIA DNA AMPLIFICATION NEGATIVE (NEGATIVE); GC DNA AMPLIFICATION NEGATIVE (NEGATIVE)
== END 2018-12-22 13:16 | disposition home or self-care (01) ==
LOC: M ED 11:15
DX: B37.3 Candidiasis of vulva and vagina (principal); N76.0 Acute vaginitis; Z20.2 Contact with and (suspected) exposure to infections with a predominantly sexual mode of transmission; I10 Essential (primary) hypertension; J45.909 Unspecified asthma, uncomplicated; K21.9 Gastro-esophageal reflux disease without esophagitis; Z79.899 Other long term (current) drug therapy; Z91.040 Latex allergy status
CPT/HCPCS: 81001; 84703; 87210; 87491; 87591; 96372; 99284; J0696

== ENCOUNTER → 2019-01-20 | Outpatient (CLI) | payer MEDICAID ==
[~2019-01-20] MED LIST changes: +ARIP1TAB4; +CITA20TA7; +FLAG500T PO; +FLUC10TA PO; +TRAM50TA2; +TRAZ-163
== END ==
LOC: M OUTALCOH 08:05
PROVIDERS: ATTEND Psychiatry & Neurology Psychiatry
DX: F14.20 Cocaine dependence, uncomplicated (principal)

== ENCOUNTER → 2019-02-27 | Outpatient (REF) | payer OTHER, MEDICAID ==
[2019-02-27 16:48] LABS: BLOOD UREA NITROGEN 11 MG/DL (7-18); CREATININE FOR GFR 1.06 MG/DL (0.55-1.30); GLOMERULAR FILTRATION RATE > 60.0 (>58)
== END ==
LOC: M LABDRAW1 13:34
PROVIDERS: ATTEND Orthopaedic Surgery
DX: Z01.812 Encounter for preprocedural laboratory examination (principal)

== ENCOUNTER → 2019-03-02 | Outpatient (REF) | payer OTHER, MEDICAID ==
[2019-03-02 13:12] LABS: BASO % 0.6 % (0.0-1.0); EOS # 0.2 10^3/uL (0.0-0.50); EOS % 3.1 % (0.0-3.0); HEMATOCRIT 43.6 % (36.0-47.0); HEMOGLOBIN 14.4 g/dl (12.0-15.5); LYMPH # 2.5 10^3/uL (1.5-4.5); LYMPH % 46.9 % (24.0-44.0); MEAN CORPUSCULAR HEMOGLOBIN 30.6 pg (27.0-33.0); MEAN CORPUSCULAR VOLUME 92.8 fl (80.0-96.0); MONO # 0.5 10^3/uL (0.0-0.8); MONO % 8.8 % (0.0-5.0); NEUTROPHILS # 2.1 10^3/uL (1.8-7.7); NEUTROPHILS % 40.4 % (36.0-66.0); PLATELET COUNT, AUTOMATED 203 10^3/uL (150-450); WHITE BLOOD COUNT 5.2 10^3/uL (4.0-10.0)
[2019-03-02 13:21] LABS: APPEARANCE, URINE HAZY (CLEAR); BACTERIA, URINE AUTO NEGATIVE (NEGATIVE); BILIRUBIN, URINE AUTO NEGATIVE (NEGATIVE); BLOOD, URINE BLOOD 1+ (NEGATIVE); COLOR, URINE YELLOW (YELLOW); GLUCOSE, URINE (UA) AUTO NEGATIVE (NEGATIVE); KETONE, URINE AUTO NEGATIVE (NEGATIVE); LEUKOCYTE ESTERASE, URINE AUTO NEGATIVE (NEGATIVE); NITRITE, URINE AUTO NEGATIVE (NEGATIVE); PROTEIN, URINE AUTO NEGATIVE (NEGATIVE); RBC, URINE AUTO 1 /HPF (0-3); SQUAMOUS EPITHELIAL CELL UR AU 5 /HPF (0-6); UROBILINOGEN, URINE AUTO 0.2 mg/dL (0.0-2.0); WBC, URINE AUTO 1 /HPF (0-3)
[2019-03-02 13:27] LABS: ALBUMIN 3.5 GM/DL (3.2-5.2); ALT/SGPT 34 U/L (12-78); BILIRUBIN,TOTAL 0.2 MG/DL (0.2-1.0); BLOOD UREA NITROGEN 15 MG/DL (7-18); CALCIUM LEVEL 8.7 MG/DL (8.5-10.1); CARBON DIOXIDE LEVEL 27 MEQ/L (21-32); CHLORIDE LEVEL 108 MEQ/L (98-107); CHOLESTEROL LEVEL 193 MG/DL (<200); CHOLESTEROL RISK RATIO 3.711 (<5); FREE T4 0.87 NG/DL (0.76-1.46); GLOMERULAR FILTRATION RATE > 60.0 (>58); GLUCOSE, FASTING 98 MG/DL (70-100); HDL CHOLESTEROL 52 MG/DL (>40); LDL CHOLESTEROL 123 MG/DL (<100); NON-HDL-C 141 MG/DL; POTASSIUM SERUM 4.2 MEQ/L (3.5-5.1); SODIUM LEVEL 139 MEQ/L (136-145); TOTAL PROTEIN 6.9 GM/DL (6.4-8.2); TRIGLYCERIDES LEVEL 92 MG/DL (<150)
[2019-03-02 13:29] LABS: TOTAL 25(OH) VITAMIN D 10.9 NG/ML (30.0-100.0)
[2019-03-02 13:45] LABS: HEMOGLOBIN A1c 5.9 %
== END ==
LOC: M LAB REF 12:41
PROVIDERS: ATTEND Nurse Practitioner Family
DX: I10 Essential (primary) hypertension (principal)

== ENCOUNTER → 2019-11-17 | Outpatient (REF) | payer OTHER, MEDICAID ==
[~2019-11-17] MED LIST changes: -TRAZ-163; +TRAZ-257; -TRAZ10TA PO; +TRAZ1TAB12 PO
[2019-11-17 17:43] LABS: ALBUMIN 3.8 GM/DL (3.2-5.2); ALT/SGPT 26 U/L (12-78); BILIRUBIN,TOTAL 0.4 MG/DL (0.2-1.0); BLOOD UREA NITROGEN 14 MG/DL (7-18); CALCIUM LEVEL 9.5 MG/DL (8.5-10.1); CARBON DIOXIDE LEVEL 31 MEQ/L (21-32); CHLORIDE LEVEL 106 MEQ/L (98-107); CHOLESTEROL LEVEL 222 MG/DL (<200); CHOLESTEROL RISK RATIO 3.639 (<5); CREATININE FOR GFR 1.14 MG/DL (0.55-1.30); GLOMERULAR FILTRATION RATE > 60.0 (>58); GLUCOSE, FASTING 88 MG/DL (70-100); HDL CHOLESTEROL 61 MG/DL (>40); LDL CHOLESTEROL 138 MG/DL (<100); NON-HDL-C 161 MG/DL; POTASSIUM SERUM 4.4 MEQ/L (3.5-5.1); SODIUM LEVEL 140 MEQ/L (136-145); TOTAL 25(OH) VITAMIN D 13.2 NG/ML (30.0-100.0); TOTAL PROTEIN 7.9 GM/DL (6.4-8.2); TRIGLYCERIDES LEVEL 113 MG/DL (<150)
[2019-11-17 17:45] LABS: BASO % 0.9 % (0.0-1.0); EOS # 0.1 10^3/uL (0.0-0.5); EOS % 2.7 % (0.0-3.0); HEMATOCRIT 45.3 % (36.0-47.0); HEMOGLOBIN 14.6 g/dl (12.0-15.5); LYMPH # 1.8 10^3/uL (1.5-5.0); LYMPH % 39.2 % (24.0-44.0); MEAN CORPUSCULAR HGB CONC 32.2 g/dl (32.0-36.5); MEAN CORPUSCULAR VOLUME 93.2 fl (80.0-96.0); MONO # 0.4 10^3/uL (0.0-0.8); MONO % 9.2 % (0.0-5.0); NEUTROPHILS # 2.1 10^3/uL (1.5-8.5); PLATELET COUNT, AUTOMATED 216 10^3/uL (150-450); RED BLOOD COUNT 4.86 10^6/uL (4.00-5.40); WHITE BLOOD COUNT 4.5 10^3/uL (4.0-10.0)
[2019-11-17 17:49] LABS: HEMOGLOBIN A1c 5.6 %
== END ==
LOC: M LAB REF 16:45
PROVIDERS: ATTEND Nurse Practitioner Family
DX: Z00.00 Encounter for general adult medical examination without abnormal findings (principal)

== ENCOUNTER → 2020-02-15 | Outpatient (REF) | payer OTHER, MEDICAID ==
[~2020-02-15] MED LIST changes: -AMLO10TA5 PO; +AMLO1TAB25 PO; +CYCL-707 PO; -CYCL10TA PO
[2020-02-15 14:00] LABS: APPEARANCE, URINE CLEAR (CLEAR); BACTERIA, URINE AUTO NEGATIVE (NEGATIVE); BILIRUBIN, URINE AUTO NEGATIVE (NEGATIVE); BLOOD, URINE BLOOD 2+ (NEGATIVE); COLOR, URINE YELLOW (YELLOW); GLUCOSE, URINE (UA) AUTO NEGATIVE (NEGATIVE); KETONE, URINE AUTO NEGATIVE (NEGATIVE); LEUKOCYTE ESTERASE, URINE AUTO NEGATIVE (NEGATIVE); NITRITE, URINE AUTO NEGATIVE (NEGATIVE); PROTEIN, URINE AUTO NEGATIVE (NEGATIVE); RBC, URINE AUTO 2 /HPF (0-3); SPECIFIC GRAVITY URINE AUTO 1.021 (1.002-1.035); SQUAMOUS EPITHELIAL CELL UR AU 3 /HPF (0-6); UROBILINOGEN, URINE AUTO 0.2 mg/dL (0.0-2.0); WBC, URINE AUTO 0 /HPF (0-3)
[2020-02-15 14:21] LABS: BASO # 0.1 10^3/uL (0.0-0.2); BASO % 0.7 % (0.0-1.0); EOS # 0.3 10^3/uL (0.0-0.5); EOS % 4.5 % (0.0-3.0); HEMATOCRIT 41.3 % (36.0-47.0); HEMOGLOBIN 13.5 g/dl (12.0-15.5); LYMPH # 3.1 10^3/uL (1.5-5.0); LYMPH % 45.5 % (24.0-44.0); MEAN CORPUSCULAR HEMOGLOBIN 30.4 pg (27.0-33.0); MEAN CORPUSCULAR HGB CONC 32.7 g/dl (32.0-36.5); MONO # 0.7 10^3/uL (0.0-0.8); MONO % 9.4 % (0.0-5.0); NEUTROPHILS # 2.7 10^3/uL (1.5-8.5); NEUTROPHILS % 39.6 % (36.0-66.0); PLATELET COUNT, AUTOMATED 245 10^3/uL (150-450); RED BLOOD COUNT 4.44 10^6/uL (4.00-5.40); WHITE BLOOD COUNT 6.9 10^3/uL (4.0-10.0)
[2020-02-15 14:26] LABS: ALBUMIN 3.7 GM/DL (3.2-5.2); ALT/SGPT 29 U/L (12-78); BILIRUBIN,TOTAL 0.2 MG/DL (0.2-1.0); BLOOD UREA NITROGEN 17 MG/DL (7-18); CALCIUM LEVEL 9.3 MG/DL (8.5-10.1); CARBON DIOXIDE LEVEL 27 MEQ/L (21-32); CHLORIDE LEVEL 106 MEQ/L (98-107); CHOLESTEROL LEVEL 192 MG/DL (<200); CHOLESTEROL RISK RATIO 3.147 (<5); CREATININE FOR GFR 1.01 MG/DL (0.55-1.30); GLOMERULAR FILTRATION RATE > 60.0 (>58); GLUCOSE, FASTING 95 MG/DL (70-100); HDL CHOLESTEROL 61 MG/DL (>40); LDL CHOLESTEROL 110 MG/DL (<100); NON-HDL-C 131 MG/DL; POTASSIUM SERUM 4.4 MEQ/L (3.5-5.1); SODIUM LEVEL 140 MEQ/L (136-145); TOTAL PROTEIN 7.3 GM/DL (6.4-8.2); TRIGLYCERIDES LEVEL 104 MG/DL (<150)
[2020-02-15 14:32] LABS: TOTAL 25(OH) VITAMIN D 38.4 NG/ML (30.0-100.0)
[2020-02-15 16:17] LABS: HEMOGLOBIN A1c 5.5 %
== END ==
LOC: M LAB REF 12:34
PROVIDERS: ATTEND Nurse Practitioner Family
DX: G47.00 Insomnia, unspecified (principal); E55.9 Vitamin D deficiency, unspecified; E78.5 Hyperlipidemia, unspecified; R73.03 Prediabetes; Z13.9 Encounter for screening, unspecified; I10 Essential (primary) hypertension

== ENCOUNTER → 2020-09-05 | Outpatient (REF) | payer MEDICAID ==
[2020-09-05 18:10] LABS: HEMATOCRIT 39.7 % (36.0-47.0); HEMOGLOBIN 13.1 g/dl (12.0-15.5); MEAN CORPUSCULAR HEMOGLOBIN 30.5 pg (27.0-33.0); MEAN CORPUSCULAR VOLUME 92.5 fl (80.0-96.0); PLATELET COUNT, AUTOMATED 236 10^3/uL (150-450); RED BLOOD COUNT 4.29 10^6/uL (4.00-5.40); WHITE BLOOD COUNT 8.3 10^3/uL (4.0-10.0)
[2020-09-05 18:37] LABS: ALT/SGPT 24 U/L (12-78); BILIRUBIN,TOTAL 0.2 MG/DL (0.2-1.0); CREATININE FOR GFR 0.69 MG/DL (0.55-1.30); CREATININE,RANDOM URINE < 13.0 MG/DL; GLOMERULAR FILTRATION RATE > 60.0 (>58); LDH LACTATE DEHYDROGENASE 155 U/L (84-246); TOTAL PROTEIN,RANDOM URINE < 5.0 MG/DL (0.0-12.0); URIC ACID 3.2 MG/DL (2.6-6.0)
[2020-09-05 19:24] LABS: HEPATITIS C VIRUS ABY INDEX < 0.0 INDEX (<0.8)
[2020-09-05 19:25] LABS: HIV 1&2 SCREEN CENTAUR NEGATIVE (NEGATIVE)
[2020-09-05 19:41] LABS: CHLAMYDIA DNA AMPLIFICATION NEGATIVE (NEGATIVE); GC DNA AMPLIFICATION NEGATIVE (NEGATIVE)
== END ==
LOC: M PLALAB 15:53
PROVIDERS: ATTEND Advanced Practice Midwife
DX: O16.2 Unspecified maternal hypertension, second trimester (principal)

== ENCOUNTER → 2020-09-05 | Outpatient (CLI) | payer OTHER ==
--- NOTE | 2020-09-05 20:08 | REP ---
INDICATION: ANATOMY COMPARISON: None. TECHNIQUE: Transabdominal obstetrical ultrasound with color Doppler evaluation. FINDINGS: Examination demonstrates a single live intrauterine in variable presentation. motion is identified by technologist. Placenta is noted anterior and grade 1 without evidence for placenta previa or abruption. Amniotic fluid volume is normal. Cervix measures 3.6 cm in length and appears closed. 1.3 cm posterior uterine fibroid noted. Gestational age by LMP 22 weeks 3 days with ASHLEIGH 01/06/2021. Gestational age by current measurements 22 weeks 1 day with ASHLEIGH 01/08/2021. FHR equals 156 beats per minute. Estimated weight 517 grams (52ndpercentile). Anatomical assessment demonstrates normal structures including cranium, cavum, cerebellum/posterior fossa, facial features, lungs, ventricular outflow tracts, diaphragm, stomach, cord insertion/three-vessel cord, bladder. Small right choroid plexus cyst. Left kidney is not identified and the right kidney demonstrates hydroureteronephrosis and possible cystic change. Incomplete evaluation of the heart, spine, and extremities due to positioning. IMPRESSION: 1. Single live intrauterine in variable presentation demonstrating appropriate estimated weight. 2. Anatomical abnormalities as described above warrant follow-up evaluation. 3. 1.3 cm posterior uterine fibroid suggested. <Electronically signed by Grabiel Burgess > 09/05/202004
== END ==
LOC: M WHC 13:46
PROVIDERS: ATTEND Advanced Practice Midwife
DX: Z36.9 Encounter for antenatal screening, unspecified (principal); Z3A.22 22 weeks gestation of pregnancy

== ENCOUNTER → 2020-09-16 | Outpatient (CLI) | payer MEDICAID | LOC: M WHC 13:16 | PROVIDERS: ATTEND Obstetrics & Gynecology | DX: Z53.9 Procedure and treatment not carried out, unspecified reason (principal) ==

== ENCOUNTER → 2020-10-14 | Outpatient (CLI) | payer OTHER | LOC: M WHC 17:11 | PROVIDERS: ATTEND Obstetrics & Gynecology | DX: O16.3 Unspecified maternal hypertension, third trimester (principal); Z3A.00 Weeks of gestation of pregnancy not specified; Z53.8 Procedure and treatment not carried out for other reasons ==

== ENCOUNTER 2020-12-21 11:36 | Inpatient (IN) | payer OTHER ==
[~2020-12-21] VITALS: Ht 170.2 cm; Wt 75.0 kg
[2020-12-21] VITALS (23 sets, daily range): BP systolic 119–187; BP diastolic 64–131
[2020-12-21] MEDS: PRENATAL VITAMINS CHEWABLE TABLET PO SCH (09:00)
[2020-12-21] MEDS ORDERED: OXYTOCIN 30 UNITS IN 0.9% NaCl 500ML IV BAG (J2590) As Ordered ONE ×2 (11:48→12:32)
[2020-12-21] MEDS ORDERED: LIDOCAINE 1% MDV 50ML VIAL As Ordered ONE (11:54)
[2020-12-21] MEDS ORDERED: OXYTOCIN DRIP 30 UNITS in IV 1 EA IV PRN (12:20)
[2020-12-21] MEDS ORDERED: LIDOCAINE 1% MDV 20ML VIAL INFIL PRN (12:20)
[2020-12-21] MEDS ORDERED: RHOGAM 300 MCG (1500 IU) INJ (J2790) IM SCH (12:25)
[2020-12-21] MEDS ORDERED: MEASLES,MUMPS,RUBELLA VACCINE INJ (MMR-II) (90707) SC SCH (12:25)
[2020-12-21] MEDS ORDERED: ACETAMINOPHEN TAB 650MG DOSE (2X325MG) PO PRN (12:25)
[2020-12-21] MEDS ORDERED: DIBUCAINE 1% OINTMENT 30GM TOP PRN (12:25)
[2020-12-21] MEDS ORDERED: IBUPROFEN 600MG TAB PO PRN (12:25)
[2020-12-21] MEDS ORDERED: IBUPROFEN 800 MG TAB PO PRN (12:25)
[2020-12-21] MEDS ORDERED: hydrALAZINE 20MG/ML 1ML VIAL (J0360 PER 20MG) IV STA ×3 (12:26→13:09)
[2020-12-21] MEDS ORDERED: OXYTOCIN DRIP 30 UNITS in IV 1 EA IV SCH (12:35)
--- NOTE | 2020-12-21 13:09 | HPEPDOC ---
Obstetrical History & Physical General Date of Admission December 21, 2020 at 11:36 History of Present Illness Zoya is a 45yo presenting by EMS after delivering her baby at home. She states she had contractions that intensified over the course of the morning, starting to get really strong around 0800, and ultimately her water broke around 1050 ("bloody" per patient) and then 10 minutes later "the baby just came out". EMS was not present for delivery but stated was 9 when they arrived. Placenta in utero when she arrived and not bleeding overly heavily. Notably, patient on questioning endorses having done cocaine 3 days ago and she has a hx of drug abuse. She was originally being seen at [facility] here in [place], but I referred her to 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 Plan was for her to deliver at [facility]. Also, patient has chronic hypertension treated with labetalol, but she reports she has not taken it for at least two days. Chief Complaint: Contractions, term Care Care: Limited Care (late to care at 21 weeks after having dating u/s at 9wk) Dating Final EDC by: LMP, 1st trimester (US) Antepartum Course Diagnos(e)s -Patient endorses cocaine use 3 days ago and she has a hx of drug abuse. -Pt was being cared for at 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 Plan was for her to deliver at [facility]. -Patient has chronic hypertension treated with labetalol (starting protein in urine was <5/<13 = 0.38) -AMA, declined NIPT -Grand multip -Sickle cell trait -Depression/anxiety/PTSD treated with zoloft and abilify -Occasional cigarette smoking Past Medical History Past Obstetrical History : Past Obstetrical History: Multigravida (1997 41wk F 5#6, 2002 37wk M 5#7, 2004 38wk F 5#11 HTN, 2006 37wk F 5#10 HTN, 2012 36wk M 5#6 HTN, 2015 37wk F 5#9 HTN, ETOP x3 and SAB x2) Past Medical History Medical History CHTN, anxiety/depression/PTSD, GERD Surgical History: Other (ankle surgery) Family History Significant Family History: Hypertension Social History Marital Status: Family situation: Spouse/partner home (spouse not present with patient on arrival) Psychosocial History: Anxiety, Depression, PTSD * Smoker: current smoker (Occasional cigarettes) Alcohol: Denies Drugs: cocaine Allergies Coded Allergies: latex (Verified Adverse Reaction, Mild, RASH, 11/13/18) Medications Scheduled Amlodipine Besylate (Amlodipine Besylate) 10 Mg Tab, 10 MG PO DAILY Fluconazole (Diflucan) 100 Mg Tablet, 1 TAB PO 1XWK for yeast infection Hydrochlorothiazide (Hydrochlorothiazide) 12.5 Mg Cap, 12.5 MG PO DAILY Metronidazole (Flagyl) 500 Mg Tablet, 500 MG PO BID Scheduled PRN Hydrocodone/Acetaminophen (Hydrocodone-Acetamin 5-325 mg) 1 Tab Tab, 1 TAB PO Q6H PRN for PAIN Miscellaneous Medications Aripiprazole (Aripiprazole) 2 Mg Tablet Citalopram Hydrobromide (Citalopram HBr) 20 Mg Tablet Tramadol HCl (Tramadol HCl) 50 Mg Tablet Trazodone HCl (Trazodone HCl) 100 Mg Tablet Physical Examination Physical Examination GENERAL: Alert and oriented times three. ABDOMEN: Soft, NTTP Perineum: umbilical cord present clamped with blue plastic clamp. EXTREMITIES: No edema Laboratory Data 24H LABS Laboratory Tests 2 12/21/20 11:58: Serology Scanned Report Hepatitis B Testing Pertinent Laboratoy Data Blood Type: O+ RBC Antibody Screen: Negative HIV: Negative Hepatitis B: Negative Hepatitis C: Negative Rapid Plasma Reagin: Nonreactive Rubella: Immune Chlamydia/Gonorrhea: Negative Group B Streptococcus: Unknown Anatomy Ultrasound Ultrasound Date: Sep 05, 2020 Placenta Location: Anterior Normal Anatomy: No (left kidney not identified and right kidney demonstrates hydroureteronephrosis and possible cystic change, incomplete eval of heart/spine/extremities. 1.3cm posterior fibroid.) Placenta Previa: No Other Ultrasounds patient had subsequent ultrasounds at [facility] which demonstrated a left pelvic kidney and normal ANURADHA Steroid Therapy Steroid Therapy: No Assessment/Plan Assessment Zoya is a 45yo presenting by EMS after delivering her baby at home. She states she had contractions that intensified over the course of the morning, starting to get really strong around 0800, and ultimately her water broke around 1050 ("bloody" per patient) and then 10 minutes later "the baby just came out". EMS was not present for delivery but stated was 9 when they arrived. Placenta was in utero when she arrived and not bleeding overly heavily. BP's severe range on presentation but no SHOEMAKER/vision changes. I suspect her elevated bp's are more related to her not taking her bp med for 2-3 days in combination with pain/ordeal of labor and recent cocaine use rather than pre-eclampsia, but will perform workup. -Patient endorses cocaine use 3 days ago and she has a hx of drug abuse. -Pt was being cared for at 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 Plan was for her to deliver at [facility]. -Patient has chronic hypertension treated with labetalol (starting protein in urine was <5/<13 = 0.38) -AMA, declined NIPT -Grand multip -Sickle cell trait -Depression/anxiety/PTSD treated with zoloft and abilify -Occasional cigarette smoking Plan Admit and orient. Counseled and consented. NICU Dr. and nursing team made aware of care plan at [facility] for baby's pelvic kidney with contralateral kidney having hydroureteronephrosis and possible cystic change Diet: regular Group B Streptococcus (GBS) unknown Labs and intravenous (IV) per unit protocol. In addition, UDS for cocaine use. Pre-E labs. Will treat severe range bp with hydralazine IV 10mg and repeat bp's, treating as needed Saline lock after bolus of pitocin and an extra bag of pitocin at 125ml/hr See delivery note for description of delivery of placenta and vaginal repair Beverly Payne MD December 21, 2020 12:31
[2020-12-21] MEDS: ACETAMINOPHEN 500 MG TAB PO PRN ×2 (13:21→21:12)
--- NOTE | 2020-12-21 13:29 | DNPDOC ---
[facility] Delivery Note Delivery Note DATE OF DELIVERY: 12/21/20 PREDELIVERY DIAGNOSIS: 37w5d gestation and labor. POST DELIVERY DIAGNOSIS: Delivered at home PROCEDURE: Spontaneous vaginal delivery WHARFINGER CHIEF: Dr. Beverly Payne MD ANESTHESIA: 1% lidocaine for perineal repair ESTIMATED BLOOD LOSS: unknown FINDINGS: 5 pound 6 ounce (2440g) male , Score of 9 given by EMS when they arrived after delivery DELIVERY SUMMARY: Zoya is a 45yo [id number] who presented via EMS after delivery of at home at 37w5d. She notes that she had ctx start this morning, they were strong by 0800 and then water broke just prior to delivery, maybe around 1050 with at 1100. Patient states fluid was bloody. She states EMS arrived a little while after the delivery. On arrival to L&D, placenta was still in utero and she was not actively hemorrhaging, baby was vigorous. The cord was clamped with a blue plastic clamp prior to arrival. With firm traction on the cord, placenta delivered spontaneously and intact with centrally inserted 3 vessel cord. Some large clots came out immediately after the placenta and I performed a vaginal sweep which revealed some more clots medium in size. Bimanual massage was performed with firming of the uterus. 30u IV Pitocin bolused at 999ml/hr. Hemostasis was noted. Inspection of vagina and perineum revealed 3 small, superficial intravaginal lacerations. 1% lidocaine injected near the lacerations and 3-0 vicryl suture used in figure of 8's to reapproximate the lacerations with complete hemostasis and excellent reapproximation. Another vaginal sweep performed with retrieval of another medium sized clot, but fundus was firm at u- 2cm. All counts correct x2. Mom and baby were doing well when I left the room. On presentation patient's bp was severe range (she has not taken her labetalol for 2-3 days and endorsed cocaine use 3 days prior), so she was treated with IV anti-HTN meds and lab workup done to rule out pre-E. No sx of pre-E. MD Elmer Corbett Katrina D MD December 21, 2020 13:29
[2020-12-21] MEDS: LABETALOL 200 MG TAB PO SCH ×2 (13:57→21:11)
[2020-12-21 14:08] LABS: HEMATOCRIT 41.9 % (36.0-47.0); HEMOGLOBIN 13.6 g/dl (12.0-15.5); MEAN CORPUSCULAR HEMOGLOBIN 28.2 pg (27.0-33.0); MEAN CORPUSCULAR HGB CONC 32.5 g/dl (32.0-36.5); MEAN CORPUSCULAR VOLUME 86.9 fl (80.0-96.0); PLATELET COUNT, AUTOMATED 206 10^3/uL (150-450); RED BLOOD COUNT 4.82 10^6/uL (4.00-5.40); WHITE BLOOD COUNT 13.3 10^3/uL (4.0-10.0)
[2020-12-21 14:32] LABS: ALT/SGPT 40 U/L (12-78); BILIRUBIN,TOTAL 0.3 MG/DL (0.2-1.0); CREATININE FOR GFR 0.94 MG/DL (0.55-1.30); GLOMERULAR FILTRATION RATE > 60.0 (>58); LDH LACTATE DEHYDROGENASE 273 U/L (84-246); URIC ACID 5.8 MG/DL (2.6-6.0)
[2020-12-21] MEDS ORDERED: LABE200T32 PO (14:51)
[2020-12-21 15:51] LABS: TOTAL PROTEIN,RANDOM URINE 26.7 MG/DL (0.0-12.0)
[2020-12-21 15:57] LABS: AMPHETAMINES URINE REFLEX NEGATIVE (NEGATIVE); BARBITURATES URINE REFLEX NEGATIVE (NEGATIVE); BENZODIAZEPINES URINE REFLEX NEGATIVE (NEGATIVE); CANNABINOIDS URINE REFLEX NEGATIVE (NEGATIVE); METHADONE URINE REFLEX NEGATIVE (NEGATIVE); OPIATES URINE REFLEX NEGATIVE (NEGATIVE); PHENCYCLIDINE URINE REFLEX NEGATIVE (NEGATIVE)
[2020-12-21 16:03] LABS: COCAINE METABOLITE URINE REFLE PENDING CONFIRMATION (NEGATIVE)
--- NOTE | 2020-12-21 16:08 | IPNPDOC ---
Text Note Date of Service The patient was seen on 12/21/20. NOTE Pt's bps much improved since delivery. After 2 doses of 10mg IV hydralazine, she is now normotensive. Labs reviewed: H/H/plt wnl, urine prot:creat 0.29 (decreased from baseline), creat 0.94, LFTs grossly wnl, uric acid 5.8. UDS shows cocaine as pending (presumptive positive and sent for confirmation)- NICU nursing team made aware of this. Will continue to monitor bp's. Given all of the findings, I still believe her elevated bp's on presentation were more related to not taking her home labetalol 2-3 days + cocaine use + labor RATHER THAN pre-eclampsia. Will not tx with MgSO4 unless sx change. Beverly Payne MD VS,Cony, I+O VS, Cony I+O Laboratory Tests 12/21/20 13:49 Vital Signs Date Time Temp Pulse Resp B/P (MAP) Pulse Ox O2 Delivery O2 Flow Rate FiO2 12/21/20 15:46 100 18 132/66 (88) 12/21/20 13:30 98.5 Beverly Payne MD December 21, 2020 16:08
[2020-12-22 05:30] VITALS: BP 150/89
[2020-12-22] MEDS: PRENATAL VITAMINS CHEWABLE TABLET PO SCH (08:13)
[2020-12-22] MEDS: LABETALOL 200 MG TAB PO SCH ×2 (08:15→20:41)
[2020-12-22 09:04] VITALS: BP 130/84
--- NOTE | 2020-12-22 12:13 | IPNPDOC ---
Progress Note Date of Service: December 22, 2020 Day#: 1 Progress Note PPD 1 SUBJECT: Zoya is a 45yo [id number] who presented via EMS after delivery of at home at 37w5d, delivering around 1100 on 12/21/20, doing well day # 1. She has been ambulating without lightheadedness/dizziness, voiding spontaneously without issue and tolerating regular diet. Baby is in NICU for hx of cocaine use during . Reports lochia is like a normal period. OBJECTIVE: VITAL SIGNS: BP's normotensive to mild range, afebrile. Alert and oriented times three. Abdomen: Fundus firm at U-2. Soft, NTTP. Extremities: no pain with palpation of calves ASSESSMENT: Zoya is a 45yo [id number] who presented via EMS after delivery of at home at 37w5d, delivering around 1100 on 12/21/20, doing well day # 1. BP's normotensive to mild range, afebrile, hemodynamically stable with no evidence of infection. No s/sx of pre-E. PLAN: 1. social work consult was placed for hx of cocaine use and they will engage tomorrow (wednesday), pt will remain until then 2. Tylenol and Motrin for pain. 3. Encourage ambulation. 4. Regular diet 5. Vitals q4hr 6. Continue labetalol 200mg BID PO Beverly Payne MD VS, I&O, 24H, Fishbone Vital Signs/I&O Vital Signs Date Time Temp Pulse Resp B/P (MAP) Pulse Ox O2 Delivery O2 Flow Rate FiO2 12/22/20 09:04 130/84 (99) 12/22/20 08:15 102 12/22/20 05:30 97.6 14 12/21/20 17:40 99 Room Air I&O- Last 24 Hours up to 6 AM 12/22/20 06:00 Output Total 700 ml Balance -700 ml Laboratory Data 24H LABS Laboratory Tests 2 12/21/20 13:49: Nucleated Red Blood Cells % (auto) 0.0, Glomerular Filtration Rate > 60.0, Uric Acid 5.8, Total Bilirubin 0.3, Aspartate Amino Transf (AST/SGOT) 38H, Alanine Aminotransferase (ALT/SGPT) 40, Lactate Dehydrogenase 273H 12/21/20 15:20: Urine Random Creatinine 92.0, Urine Random Total Protein 26.7H, Urine Opiates Screen NEGATIVE, Urine Methadone Screen NEGATIVE, Urine Barbiturates Screen NEGATIVE, Urine Phencyclidine Screen NEGATIVE, Urine Amphetamines Screen NEGATIVE, Urine Benzodiazepines Screen NEGATIVE, Urine Cocaine Metabolite Screen PENDING CONFIRMATIONH, Urine Cannabinoids Screen NEGATIVE CBC/BMP Laboratory Tests 12/21/20 13:49 Beverly Payne MD December 22, 2020 12:13
[2020-12-22 18:00] VITALS: BP 130/89
[2020-12-22] MEDS: ACETAMINOPHEN 500 MG TAB PO PRN (18:03)
[2020-12-22] MEDS: DOCUSATE SODIUM 100MG CAPSULE PO PRN (20:41)
[2020-12-23 05:45] VITALS: BP_SYST 143; BP_SYST 146; BP_DIAS 100; BP_DIAS 103
[2020-12-23 06:10] VITALS: BP 137/97
--- NOTE | 2020-12-23 07:10 | IPNPDOC ---
Progress Note Date of Service: December 23, 2020 Day#: 2 Progress Note PPD 2 SUBJECT: Zoya is a 45yo [id number] who presented via EMS after delivery of at home at 37w5d, delivering around 1100 on 12/21/20, doing well day # 2. She has been ambulating without lightheadedness/dizziness, voiding spontaneously without issue and tolerating regular diet. Formula feeding. Social work consult was placed for hx of cocaine use during . Reports lochia is like a normal period. OBJECTIVE: VITAL SIGNS: BP's normotensive to mild range, afebrile. Alert and oriented times three. Abdomen: Fundus firm at U-2. Soft, NTTP. Extremities: no pain with palpation of calves ASSESSMENT: Zoya is a 45yo [id number] who presented via EMS after delivery of at home at 37w5d, delivering around 1100 on 12/21/20, doing well day # 2. BP's normotensive to mild range, afebrile, hemodynamically stable with no evidence of infection. No s/sx of pre-E. PLAN: 1. social work consult was placed for hx of cocaine use and they will engage today, pt and baby will remain admitted until all social issues resolved. 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 Leo will provide guidance to patient on baby's future care needs 2. Tylenol and Motrin for pain. 3. Encourage ambulation. 4. Regular diet 5. Vitals q4hr 6. Continue labetalol 200mg BID PO Beverly Payne MD VS, I&O, 24H, Fishbone Vital Signs/I&O Vital Signs Date Time Temp Pulse Resp B/P (MAP) Pulse Ox O2 Delivery O2 Flow Rate FiO2 12/23/20 06:10 137/97 (110) 12/23/20 05:45 98.4 83 14 100 Room Air Beverly Payne MD December 23, 2020 07:10
[2020-12-23] MEDS: PRENATAL VITAMINS CHEWABLE TABLET PO SCH (07:56)
[2020-12-23] MEDS: ACETAMINOPHEN 500 MG TAB PO PRN (07:56)
[2020-12-23] MEDS: LABETALOL 200 MG TAB PO SCH ×2 (09:54→20:06)
[2020-12-23 10:10] VITALS: BP 142/85
[2020-12-23 18:18] VITALS: BP 138/80
[2020-12-23] MEDS: DOCUSATE SODIUM 100MG CAPSULE PO PRN (20:04)
[2020-12-24 06:00] VITALS: BP 140/82
[2020-12-24 09:31] VITALS: BP 141/91
[2020-12-24] MEDS: LABETALOL 200 MG TAB PO SCH (09:31)
[2020-12-24] MEDS: PRENATAL VITAMINS CHEWABLE TABLET PO SCH (09:31)
[2020-12-26 14:09] LABS: Cocaine Positive (.); GC Benzoylecgon 30060 ng/mL (Cutoff=150)
== END 2020-12-24 13:45 | disposition home or self-care (01) | DRG 544 ==
LOC: M LDI 11:36 → M OBS 17:40
PROVIDERS: ADMIT Obstetrics & Gynecology; ATTEND Obstetrics & Gynecology
PROC: 10D17ZZ Extraction of Products of Conception, Retained, Via Natural or Artificial Opening (ICD-10-PCS; principal; 2020-12-21)
PROC: 0HQ9XZZ Repair Perineum Skin, External Approach (ICD-10-PCS; 2020-12-21)
DX: Z39.0 Encounter for care and examination of mother immediately after delivery (principal); O70.0 First degree perineal laceration during delivery

== ENCOUNTER → 2020-12-25 | Outpatient (CLI) | payer MEDICAID ==
[~2020-12-25] MED LIST changes: +LABE200T32 PO
== END ==
LOC: M OUTALCOH 09:07
PROVIDERS: ATTEND Psychiatry & Neurology Psychiatry
DX: Z79.899 Other long term (current) drug therapy (principal)

== ENCOUNTER 2020-12-30 14:27 | Emergency (ER) | payer MEDICAID, OTHER ==
[~2020-12-30] VITALS: Ht 170.2 cm; Wt 70.0 kg
[2020-12-30 17:21] VITALS: BP 154/100
== END 2020-12-30 17:25 | disposition home or self-care (01) ==
LOC: M ED 14:27
DX: O99.893 Other specified diseases and conditions complicating puerperium (principal); K64.8 Other hemorrhoids; I10 Essential (primary) hypertension; O99.53 Diseases of the respiratory system complicating the puerperium; J45.909 Unspecified asthma, uncomplicated; O99.345 Other mental disorders complicating the puerperium; F33.9 Major depressive disorder, recurrent, unspecified; F41.9 Anxiety disorder, unspecified; O99.63 Diseases of the digestive system complicating the puerperium; K21.9 Gastro-esophageal reflux disease without esophagitis; Z79.899 Other long term (current) drug therapy; Z88.8 Allergy status to other drugs, medicaments and biological substances; Z91.040 Latex allergy status

== ENCOUNTER 2021-01-24 11:56 | Outpatient (RCR) | payer MEDICAID | END 2021-02-05 | LOC: M OUTALCOH 11:56 | PROVIDERS: ATTEND Psychiatry & Neurology Psychiatry | DX: F14.20 Cocaine dependence, uncomplicated (principal) ==

== ENCOUNTER 2021-08-04 11:34 | Emergency (ER) | payer MEDICAID, OTHER ==
[~2021-08-04] VITALS: Ht 170.2 cm; Wt 64.9 kg
[2021-08-04 15:29] VITALS: BP 158/90
[2021-08-04] MEDS ORDERED: AUGM875T28 PO (15:36)
== END 2021-08-04 15:51 | disposition home or self-care (01) ==
LOC: M ED 11:34
DX: H66.002 Acute suppurative otitis media without spontaneous rupture of ear drum, left ear (principal); J45.909 Unspecified asthma, uncomplicated; F33.9 Major depressive disorder, recurrent, unspecified; F41.9 Anxiety disorder, unspecified; K21.9 Gastro-esophageal reflux disease without esophagitis; Z79.899 Other long term (current) drug therapy

== ENCOUNTER 2022-03-15 17:37 | Emergency (ER) | payer MEDICAID, OTHER ==
[~2022-03-15] VITALS: Ht 170.2 cm; Wt 62.7 kg
[~2022-03-15 17:37] MED LIST changes: +AUGM875T28 PO; -LABE200T32 PO; +LABE200T5 PO
[2022-03-15] MEDS ORDERED: LIDOCAINE 1% MDV 20ML VIAL SC ONE (19:45)
[2022-03-15] MEDS ORDERED: DOXY-443 PO (20:29)
[2022-03-15] MEDS ORDERED: DOXYCYCLINE HYCLATE 100MG TABLET PO ONE (20:30)
[2022-03-15] MEDS ORDERED: LABETALOL 100MG TAB PO ONE (21:05)
[2022-03-15] MEDS ORDERED: LABE100T6 PO (21:40)
[2022-03-15] MEDS ORDERED: MORPHINE 4 MG/ML 1ML VIAL/SYRINGE IV ONE (21:50)
[2022-03-15 22:39] LABS: BASO % 0.4 % (0.0-1.0); EOS # 0.1 10^3/uL (0.0-0.5); EOS % 1.5 % (0.0-3.0); HEMATOCRIT 46.5 % (36.0-47.0); HEMOGLOBIN 15.6 g/dl (12.0-15.5); LYMPH # 1.9 10^3/uL (1.5-5.0); LYMPH % 21.5 % (24.0-44.0); MEAN CORPUSCULAR HEMOGLOBIN 30.4 pg (27.0-33.0); MEAN CORPUSCULAR HGB CONC 33.5 g/dl (32.0-36.5); MEAN CORPUSCULAR VOLUME 90.6 fl (80.0-96.0); MONO # 0.6 10^3/uL (0.0-0.8); MONO % 6.9 % (2.0-8.0); NEUTROPHILS # 6.3 10^3/uL (1.5-8.5); NEUTROPHILS % 69.5 % (36.0-66.0); PLATELET COUNT, AUTOMATED 214 10^3/uL (150-450); RED BLOOD COUNT 5.13 10^6/uL (4.00-5.40)
[2022-03-15 23:29] LABS: CK-MB VALUE MASS < 1.0 NG/ML (<3.6); CPK CREATINE PHOSPHOKINASE 181 U/L (26-192); MB/CK RELATIVE INDEX 0.55 (< OR =4)
[2022-03-15 23:45] VITALS: BP 162/102
[2022-03-15] MEDS ORDERED: hydrALAZINE 20MG/ML 1ML VIAL (J0360 PER 20MG) IV ONE (23:45)
[2022-03-16] MEDS ORDERED: MORPHINE 2 MG/ML 1ML VIAL IV ONE (00:05)
[2022-03-16 00:26] VITALS: BP 152/98
== END 2022-03-16 00:53 | disposition home or self-care (01) ==
LOC: M ED 17:37 → EEVIPCON 17:37 → M ED 03-16 00:53
DX: L02.415 Cutaneous abscess of right lower limb (principal); I10 Essential (primary) hypertension; F17.200 Nicotine dependence, unspecified, uncomplicated; Z88.6 Allergy status to analgesic agent; Z91.040 Latex allergy status
CPT/HCPCS: 80047; 82550; 82553; 85025; 87070; 87077; 87186; 87205; 93005; 93041; 96374; 96375; 96376; 99284; J0360; J2270

== ENCOUNTER 2022-03-19 13:59 | Emergency (ER) | payer OTHER ==
[~2022-03-19 13:59] MED LIST changes: +DOXY-443 PO; +LABE100T6 PO
[2022-03-19] MEDS ORDERED: NALOXONE INJ 0.4MG/1ML VIAL (J2310 PER 1MG) IV ONE (14:10)
[2022-03-19] MEDS ORDERED: NS 500 ML IV ONE ×2 (14:10→18:30)
[2022-03-19 14:35] LABS: BASO % 0.2 % (0.0-1.0); HEMATOCRIT 40.3 % (36.0-47.0); HEMOGLOBIN 13.2 g/dl (12.0-15.5); LYMPH # 1.2 10^3/uL (1.5-5.0); LYMPH % 6.6 % (24.0-44.0); MEAN CORPUSCULAR HEMOGLOBIN 30.1 pg (27.0-33.0); MEAN CORPUSCULAR HGB CONC 32.8 g/dl (32.0-36.5); MEAN CORPUSCULAR VOLUME 91.8 fl (80.0-96.0); MONO # 0.9 10^3/uL (0.0-0.8); MONO % 5.1 % (2.0-8.0); NEUTROPHILS # 15.5 10^3/uL (1.5-8.5); NEUTROPHILS % 87.2 % (36.0-66.0); PLATELET COUNT, AUTOMATED 253 10^3/uL (150-450); RED BLOOD COUNT 4.39 10^6/uL (4.00-5.40); WHITE BLOOD COUNT 17.8 10^3/uL (4.0-10.0)
[2022-03-19 15:10] VITALS: BP 155/120
[2022-03-19] MEDS ORDERED: LABETALOL 100MG TAB PO ONE (15:10)
[2022-03-19 15:29] LABS: ACETAMINOPHEN LEVEL < 2.0 UG/ML (10.0-30.0); ALBUMIN 3.4 GM/DL (3.2-5.2); ALT/SGPT 97 U/L (12-78); BILIRUBIN,DIRECT < 0.1 MG/DL (0.0-0.2); BILIRUBIN,TOTAL 0.3 MG/DL (0.2-1.0); BLOOD UREA NITROGEN 19 MG/DL (7-18); CALCIUM LEVEL 8.8 MG/DL (8.5-10.1); CARBON DIOXIDE LEVEL 24 MEQ/L (21-32); CHLORIDE LEVEL 99 MEQ/L (98-107); CREATININE FOR GFR 1.76 MG/DL (0.55-1.30); ETHYL ALCOHOL (ETHANOL) 0.003 % (0.000-0.010); GLOMERULAR FILTRATION RATE 40.5 (>58); GLUCOSE, FASTING 81 MG/DL (70-100); POTASSIUM SERUM 4.8 MEQ/L (3.5-5.1); SALICYLATE LEVEL < 1.7 MG/DL (5.0-30.0); SODIUM LEVEL 134 MEQ/L (136-145); THYROID STIMULATING HORMONE 0.449 uIU/ML (0.358-3.740); TOTAL PROTEIN 7.8 GM/DL (6.4-8.2)
[2022-03-19] MEDS ORDERED: NALOXONE 2MG/2ML SYRINGE (J2310 PER 1MG) As Ordered ONE (17:45)
[2022-03-19 21:18] VITALS: BP 128/87
== END 2022-03-19 21:31 | disposition home or self-care (01) ==
LOC: M ED 13:59
DX: T40.1X1A Poisoning by heroin, accidental (unintentional), initial encounter (principal); F11.129 Opioid abuse with intoxication, unspecified; Z91.040 Latex allergy status; Z88.6 Allergy status to analgesic agent
CPT/HCPCS: 36415; 80048; 80076; 80143; 82077; 82550; 84443; 85025; 93005; 93041; 94760; 96374; 99285; J2310

== ENCOUNTER 2022-11-24 15:48 | Emergency (ER) | payer OTHER ==
[~2022-11-24] VITALS: Ht 170.2 cm; Wt 63.4 kg
[2022-11-24] MEDS ORDERED: MIRT-60 PO (16:00)
[2022-11-24 16:54] LABS: BASO % 0.4 % (0.0-1.0); EOS # 0.1 10^3/uL (0.0-0.5); EOS % 0.7 % (0.0-3.0); HEMATOCRIT 43.1 % (36.0-47.0); HEMOGLOBIN 14.1 g/dl (12.0-15.5); LYMPH # 1.9 10^3/uL (1.5-5.0); LYMPH % 26.2 % (24.0-44.0); MEAN CORPUSCULAR HEMOGLOBIN 29.8 pg (27.0-33.0); MEAN CORPUSCULAR HGB CONC 32.7 g/dl (32.0-36.5); MEAN CORPUSCULAR VOLUME 91.1 fl (80.0-96.0); MONO # 0.4 10^3/uL (0.0-0.8); MONO % 6.1 % (2.0-8.0); NEUTROPHILS # 4.8 10^3/uL (1.5-8.5); NEUTROPHILS % 66.5 % (36.0-66.0); PLATELET COUNT, AUTOMATED 219 10^3/uL (150-450); RED BLOOD COUNT 4.73 10^6/uL (4.00-5.40); WHITE BLOOD COUNT 7.2 10^3/uL (4.0-10.0)
[2022-11-24 16:56] LABS: APPEARANCE, URINE CLEAR (CLEAR); BACTERIA, URINE AUTO NEGATIVE (NEGATIVE); BILIRUBIN, URINE AUTO NEGATIVE (NEGATIVE); BLOOD, URINE BLOOD NEGATIVE (NEGATIVE); COLOR, URINE YELLOW (YELLOW); GLUCOSE, URINE (UA) AUTO NEGATIVE (NEGATIVE); KETONE, URINE AUTO NEGATIVE (NEGATIVE); LEUKOCYTE ESTERASE, URINE AUTO NEGATIVE (NEGATIVE); NITRITE, URINE AUTO NEGATIVE (NEGATIVE); PROTEIN, URINE AUTO NEGATIVE (NEGATIVE); RBC, URINE AUTO 1 /HPF (0-3); SPECIFIC GRAVITY URINE AUTO 1.023 (1.002-1.035); SQUAMOUS EPITHELIAL CELL UR AU 1 /HPF (0-6); UROBILINOGEN, URINE AUTO 0.2 mg/dL (0.0-2.0); WBC, URINE AUTO 1 /HPF (0-3)
[2022-11-24 17:22] LABS: ALBUMIN 3.5 G/DL (3.2-5.2); ALKALINE PHOSPHATASE 83 U/L (46-116); ALT/SGPT 18 U/L (7.0-40); AST/SGOT 18 U/L (<34); BILIRUBIN,DIRECT < 0.1 MG/DL (<0.4); BILIRUBIN,TOTAL 0.2 MG/DL (0.3-1.2); BLOOD UREA NITROGEN 18 MG/DL (9-23); CALCIUM LEVEL 9.3 MG/DL (8.5-10.1); CARBON DIOXIDE LEVEL 28 MMOL/L (20-31); CHLORIDE LEVEL 105 MMOL/L (98-107); CREATININE FOR GFR 0.91 MG/DL (0.55-1.30); GLOMERULAR FILTRATION RATE > 60.0 (>58); GLUCOSE, FASTING 113 MG/DL (60-100); POTASSIUM SERUM 4.2 MMOL/L (3.5-5.1); SODIUM LEVEL 139 MMOL/L (136-145); TOTAL PROTEIN 6.8 G/DL (5.7-8.2)
[2022-11-24 17:39] LABS: CK-MB VALUE MASS < 1.0 NG/ML (<3.6)
[2022-11-24 17:40] LABS: CPK CREATINE PHOSPHOKINASE 90 U/L (34-145); MB/CK RELATIVE INDEX 1.11 (< OR =4)
[2022-11-24] MEDS ORDERED: LABETALOL 100MG TAB PO ONE (18:00)
[2022-11-24 19:28] VITALS: BP 158/90
[2022-11-24] MEDS ORDERED: LABE100T71 PO (19:34)
== END 2022-11-24 20:16 | disposition home or self-care (01) ==
LOC: M ED 15:48
DX: I10 Essential (primary) hypertension (principal); J45.909 Unspecified asthma, uncomplicated; K21.9 Gastro-esophageal reflux disease without esophagitis; G43.909 Migraine, unspecified, not intractable, without status migrainosus; Z88.6 Allergy status to analgesic agent; Z91.040 Latex allergy status; Z79.810 Long term (current) use of selective estrogen receptor modulators (SERMs); Z79.899 Other long term (current) drug therapy

== ENCOUNTER → 2022-11-26 | Outpatient (REF) ==
[~2022-11-26] MED LIST changes: +LABE100T71 PO; +MIRT-60 PO
== END ==
LOC: M LAB 14:48
PROVIDERS: ATTEND Nurse Practitioner Adult Health
DX: Z13.9 Encounter for screening, unspecified (principal)

== ENCOUNTER 2022-11-28 04:27 | Emergency (ER) | payer OTHER ==
[2022-11-28] MEDS ORDERED: LIDOCAINE W/EPINEPHRINE 1% 20ML VIAL As Ordered ONE (07:25)
[2022-11-28] MEDS ORDERED: LIDOCAINE W/EPINEPHRINE 1% 20ML VIAL INFIL ONE (08:00)
[2022-11-28] MEDS ORDERED: ACETAMINOPHEN TAB 650MG DOSE (2X325MG) PO ONE (08:00)
[2022-11-28] MEDS ORDERED: LABETALOL 100MG TAB PO ONE (08:05)
[2022-11-28] MEDS ORDERED: BOOSTRIX VACCINE (TETANUS/DIPHTH/ACEL. PERTUSSIS) 0.5ML SYR IM.IMMUN ONE (08:25)
[2022-11-28 08:44] VITALS: BP 144/88
[2022-11-28 09:21] VITALS: BP 162/110
== END 2022-11-28 09:24 | disposition home or self-care (01) ==
LOC: M ED 04:27
DX: S01.81XA Laceration without foreign body of other part of head, initial encounter (principal); S09.90XA Unspecified injury of head, initial encounter; X99.0XXA Assault by sharp glass, initial encounter; Y92.009 Unspecified place in unspecified non-institutional (private) residence as the place of occurrence of the external cause; I10 Essential (primary) hypertension; Z23 Encounter for immunization; Z88.6 Allergy status to analgesic agent; Z91.040 Latex allergy status

== ENCOUNTER 2025-04-08 01:44 | Emergency (ER) | payer OTHER ==
[~2025-04-08] VITALS: Ht 170.2 cm; Wt 53.7 kg
[~2025-04-08 01:44] MED LIST changes: +DOXY-441 PO; -DOXY-443 PO; +HYDR12.510 PO; -HYDR12CA PO; +LABE100T40 PO; -LABE100T71 PO; -MIRT-60 PO; +MIRT-89 PO
[2025-04-08 01:50] VITALS: TEMP 97.7
[2025-04-08 04:05] LABS: APPEARANCE, URINE HAZY (CLEAR); BACTERIA, URINE AUTO NEGATIVE (NEGATIVE); BILIRUBIN, URINE AUTO NEGATIVE (NEGATIVE); BLOOD, URINE BLOOD NEGATIVE (NEGATIVE); GLUCOSE, URINE (UA) AUTO NEGATIVE (NEGATIVE); KETONE, URINE AUTO NEGATIVE (NEGATIVE); LEUKOCYTE ESTERASE, URINE AUTO NEGATIVE (NEGATIVE); MUCUS, URINE SMALL (NEGATIVE); NITRITE, URINE AUTO NEGATIVE (NEGATIVE); PROTEIN, URINE AUTO NEGATIVE (NEGATIVE); RBC, URINE AUTO 1 /HPF (0-3); SPECIFIC GRAVITY URINE AUTO 1.008 (1.002-1.035); SQUAMOUS EPITHELIAL CELL UR AU 1 /HPF (0-6); UROBILINOGEN, URINE AUTO 0.2 mg/dL (0.0-2.0); WBC, URINE AUTO 5 /HPF (0-3)
[2025-04-08 04:24] LABS: HCG, SERUM QUANTITATIVE < 2.6 MIU/ML (<4.2)
[2025-04-08 04:55] LABS: CALCIUM LEVEL 9.3 MG/DL (8.5-10.1); CARBON DIOXIDE LEVEL 26 MMOL/L (20-31); CHLORIDE LEVEL 100 MMOL/L (98-107); CREATININE FOR GFR 1.69 MG/DL (0.55-1.30); GLOMERULAR FILTRATION RATE 37.3 (>58); POTASSIUM SERUM 5.0 MMOL/L (3.5-5.1); SODIUM LEVEL 138 MMOL/L (136-145)
[2025-04-08 05:11] VITALS: BP 198/126
[2025-04-08] MEDS: LABETALOL 100 MG TAB PO ONE (05:11)
[2025-04-08 05:45] VITALS: BP 152/101
[2025-04-08 06:30] VITALS: O2SAT 84
[2025-04-08] MEDS ORDERED: ACET-907 PO (06:50)
== END 2025-04-08 07:04 | disposition home or self-care (01) ==
LOC: M ED 01:44
DX: S39.91XA Unspecified injury of abdomen, initial encounter (principal); Y92.9 Unspecified place or not applicable; Y93.9 Activity, unspecified; Y99.9 Unspecified external cause status; Y04.0XXA Assault by unarmed brawl or fight, initial encounter; I10 Essential (primary) hypertension; Z32.02 Encounter for pregnancy test, result negative; Z88.6 Allergy status to analgesic agent; Z91.040 Latex allergy status; Z79.1 Long term (current) use of non-steroidal anti-inflammatories (NSAID); Z79.899 Other long term (current) drug therapy